=== PATIENT | female | born 1965 | race Caucasian/White ===

== ENCOUNTER 2018-01-07 08:56 | Emergency (ER) | payer BC, SELFPAY ==
[2018-01-07] VITALS (59 sets, daily range): BP systolic 114–142; BP diastolic 63–84; PULSE 55–76; RESP 11–23; TEMP 36.7–37.2; O2SAT 97–100
--- NOTE | 2018-01-07 09:13 | DI.REPORT_ITS ---
SYMPTOM/DIAGNOSIS: CHEST PAIN PA AND LATERAL CHEST: The heart is normal in size. The lungs are clear. The mediastinal structures and pleura appear intact. CONCLUSION: Normal chest.
[2018-01-07 09:26] LABS: Absolute Basophil Count 0.05 k/cumm (0.0-0.2); Absolute Eosinophil Count 0.04 k/cumm (0.0-0.7); Absolute Lymphocyte Count 1.38 k/cumm (1.2-3.4); Absolute Monocyte Count 0.38 k/cumm (0.11-0.7); Absolute Neutrophil Count 3.53 k/cumm (1.2-6.7); Basophils % 0.9; Eosinophils % 0.7; HCT 37.2 % (36.0-46.0); HGB 11.3 g/dL (12.0-15.5); Lymphocytes % 25.7; Mean Corp. HGB Concentration 30.4 g/dL (32.0-36.0); Mean Corpuscular Hemoglobin 24.1 pg (27.0-33.0); Mean Corpuscular Volume 79.3 fL (80-95); Mean Platelet Volume 12.6 fL (8.0-11.0); Monocytes % 7.1; Neutrophils % 65.6; Platelet Count 205 x1000/uL (130-400); RBC 4.69 m/cumm (4.00-5.20); RBC Distribution Width 18.8 % (11.7-14.6); White Blood Cell Count 5.38 k/cumm (4.4-10.8)
[2018-01-07 09:37] LABS: ALT 32 U/L (12-78); AST 21 U/L (15-37); Albumin 3.7 g/dL (3.4-5.0); Alkaline Phosphatase 52 U/L (46-116); BUN 11 mg/dL (7-18); Bilirubin, Total 0.2 mg/dL (0.2-1.0); CREATININE 0.63 mg/dL (0.55-1.02); Calcium 8.7 mg/dL (8.5-10.1); Chloride 102 mmol/L (98-107); Glucose 106 mg/dL (70-100); Lipase 203 U/L (73-393); Magnesium 1.9 mg/dL (1.8-2.4); Potassium 3.5 mmol/L (3.5-5.1); Sodium 137 mmol/L (136-145); Total Protein 7.6 g/dL (6.4-8.2)
[2018-01-07 09:44] LABS: Troponin I < 0.02 ng/mL (0.00-0.06)
--- NOTE | 2018-01-07 09:52 | ED.GENADUL_ITS ---
Disposition Clinical Impression: Atypical chest pain Disposition: HOME Condition: Improving Instructions: Chest Pain (ED) Additional Instructions: Drink plenty of fluids and get plenty of rest. You can consider stopping your Nexium and starting Prilosec, Prevacid or Pepcid for your chronic heartburn. Follow-up with your scheduled appointment for your stress test as directed. Return immediately to the emergency department with any worsening or new concerning symptoms. Prescriptions: Famotidine [Pepcid] 20 mg PO BID 14 Days tab Medical Decision Making - Lab Data Laboratory Tests 01/07/18 01/07/18 09:05 09:05 WBC 5.38 RBC 4.69 Hgb 11.3 L Hct 37.2 MCV 79.3 L MCH 24.1 L MCHC 30.4 L RDW 18.8 H Plt Count 205 MPV 12.6 H Immature Gran % 0.0 Neutrophils % 65.6 Lymphocytes % 25.7 Monocytes % 7.1 Eosinophils % 0.7 Basophils % 0.9 Absolute Neutrophils 3.53 Absolute Lymphocytes 1.38 Absolute Monocytes 0.38 Absolute Eosinophils 0.04 Absolute Basophils 0.05 Sodium 137 Potassium 3.5 Chloride 102 Carbon Dioxide 27.0 Anion Gap 8.0 BUN 11 Creatinine 0.63 Estimated GFR/1.73 m2 >= 60.00 Glucose 106 H Calcium 8.7 Magnesium 1.9 Total Bilirubin 0.2 AST 21 ALT 32 Alkaline Phosphatase 52 Troponin I < 0.02 Total Protein 7.6 Albumin 3.7 Lipase 203 - EKG Data -: EKG Interpreted by Ak 01/07/18 0902: 70 bpm. Sinus. T-wave inversion in lead III which is seen in previous EKG 2013. No acute ST elevation or depression. 01/07/18 1414: 60 bpm. Sinus. T-wave inversion in lead III which is seen in previous. No acute ST elevation or depression. Previous EKG [address] depression was also found to be reported in the initial EKG today but this does not appear significant and I do not see this depression. - Radiology Data Radiology results: report reviewed, image reviewed Chest x-ray: Negative - Medical Decision Making 909 -- 52-year-old female with 2 hour episode of right anterior chest pain that resolved prior to coming to ED. Admits to similar pain over the last few years which was diagnosed as possible GERD versus heartburn. She admits to chronic chest pain and fatigue associated what she thinks may be Lyme disease. States he has seen rheumatology in the past and had 2 negative Lyme titers. States he is still concerned that she may have Lyme disease. No DVT or PE risk factors. Wells score low risk and PERC rule does not apply as her age is 52 which is the only criteria that was positive with age greater than 50 otherwise all other factors negative. She has normal vital signs and no acute findings on exam. EKG on arrival no acute findings. Exercise stress test from November 2016 negative. Cardiac workup ordered as well as a dose of aspirin. 1100 -- labs and imaging reviewed and negative. ACS appears less likely as pain completely resolved, similar to previous GERD, negative troponin and no acute findings on EKG. Patient was offered admission but declines. Patient is agreeable to stay for second troponin at 130 PM. 1345 -- second troponin negative. Patient admits to return of pain. States it feels similar to her usual pain with reflux but is on the right side. Patient states she would like to go home. She was again offered admission but declines. At this time due to return of pain, will obtain an EKG, Pepcid and GI cocktail reassess. Patient states she would like to be out of here in the next 30 minutes. 1430 -- patient feels much better. States her symptoms have completely resolved. Patient is requesting to go home. Patient set up for outpatient exercise stress test. Will send him with prescription for Pepcid. She is instructed to follow-up with her primary care doctor within the next 2 days for reevaluation and return here if worse. History of Present Illness - General Chief complaint: Chest Pain Stated complaint: CHEST PAIN Time Seen by Provider: 01/07/18 09:10 Source: patient Mode of arrival: ambulatory Limitations: no limitations - History of Present Illness Initial comments: Patient is a 52-year-old female who presents to the ER with complaint of right- sided chest pain that started while driving the car this morning and is now resolved. Patient states at 630 this morning she was driving to work when she developed right-sided crushing chest pain. Symptoms resolved before coming to the emergency department. She denies any radiation of pain or any other associated symptoms of nausea, dizziness. She does admit to chronic shortness of breath for several years which she has been evaluated for by her PCP and states she had this this morning it was noted for than usual. Patient admits to similar type chest pain over the past several years associated with her GERD or heartburn. Patient states the pain is usually on the left side but the pain was similar in quality today. She states she does have a history of chronic joint pain and fatigue which she thinks is due to possibly Lyme disease which she may have contracted in 2010 but states she never received treatment for it. She states she had developed the erythema migrans rash after a tick bite. States she had 2 Lyme antibody test after that which were negative. Patient states she has seen rheumatology in the past for this and was ruled out for rheumatoid arthritis. She also states she has had a recent EGD in the last year her gastroenterology which was normal. She also admits to a stress test in 2014 which was negative and a stress test 1 year ago for similar type pain yesterday which was negative. She denies recent travel, recent surgery, leg pain or swelling. - Related Data Iron 1 tab PO DAILY 04/20/14 Multivitamin [Daily Multiple Vitamin] 1 each PO DAILY 06/04/16 Esomeprazole Magnesium [Nexium] 40 mg PO DAILY 01/07/18 Famotidine [Pepcid] 20 mg PO BID 14 Days tab 01/07/18 Allergies Allergy/AdvReac Type Severity Reaction Status Date / Time nickel AdvReac Intermediate Hives Unverified 01/07/18 09:10 pine and spruce AdvReac Intermediate Hives Uncoded 01/07/18 09:10 Review of Systems Constitutional: denies: chills, fever Eyes: denies: eye pain ENT: denies: ear pain, dental pain Respiratory: denies: cough, shortness of breath Cardiovascular: denies: chest pain, dyspnea on exertion Gastrointestinal: denies: abdominal pain, nausea, vomiting Genitourinary: denies: urgency, dysuria, frequency Musculoskeletal: denies: back pain Skin: denies: rash, lesions Neurological: denies: headache, weakness, numbness Past Medical History - Past Medical History Medical history: GERD Ovarian cysts Surgical history: herniorraphy, - Social History Smoking status: current everyday smoker Alcohol use: none Drug use: none General Exam - General Limitations: no limitations General appearance: alert, in no apparent distress - Eye Eye exam: Present: EOMI - Respiratory Respiratory exam: Present: normal lung sounds bilaterally, other (No evidence of trauma or rash). Absent: respiratory distress, wheezes, rales, rhonchi, stridor, chest wall tenderness - Cardiovascular Cardiovascular Exam: Present: regular rate, normal rhythm. Absent: bradycardia , tachycardia - GI/Abdominal GI/Abdominal exam: Present: soft, normal bowel sounds. Absent: distended, tenderness, guarding, rebound, rigid - Extremities Exam Extremities exam: Present: other (no lower extremity edema) - Neurological Exam Neurological exam: Present: alert, oriented X3 - Psychiatric Psychiatric exam: Present: normal affect - Skin Skin exam: Present: warm, dry, intact Course Vital Signs - 24 hr 01/07/18 01/07/18 09:03 09:16 Temperature 99.0 F Pulse 76 Respiratory 16 16 Rate Blood Pressure 136/84 Pulse Oximetry 100
[2018-01-07] MEDS: Aspirin 325 MG TAB PO (11:16)
[2018-01-07 13:42] LABS: Troponin I < 0.02 ng/mL (0.00-0.06)
[2018-01-07] MEDS: FAMOTIDINE 20 MG/50 ML BAG 100 MG IVPB (14:08)
== END 2018-01-07 15:14 | disposition home or self-care (01) ==
PROVIDERS: Emergency Provider Physician Assistant; PCP Internal Medicine
DX: R07.89 Other chest pain (principal)
CPT/HCPCS: 36415; 80053; 83690; 93005; 96365; 99285; 71046; 83735; 84484; 85025; 93010

== ENCOUNTER → 2018-01-09 01:09 | Outpatient (CLI) | payer BC, SELFPAY ==
--- NOTE | 2018-01-09 13:00 | ETT_ITS ---
*[facility]* *[facility]* [address] [place] [address] Stress Electrocardiography Rashel protocol Date of study: 01/09/2018 *PATIENT PRESENTATION* Height: 170.2cm (67in) Blood Pressure: Weight: 68.2kg (150lb) BSA: 1.8m^2 Ordering physician: Milagros Felix Impressions: Normal study after maximal exercise. Summary: 1. Stress ECG conclusions: Brody treadmill score: 10. This score predicts a low risk of cardiac events. Indication: R07.9. History: Patient's presenting symptoms: nonanginal chest pain. REASON FOR VISIT: PATIENT PRESENTED TO THE EMERGENCY ROOM 01/07/18 FOLLOWING 2 HOURS OF 5/10 CRUSHING RIGHT ANTERIOR CHEST PAIN. ONSET OF CHEST PAIN WHILE DRIVING CAR AND HAD RESOLVED WITHOUT INTERVENTION PRIOR TO ARRIVAL TO EMERGENCY ROOM. PATIENT REPORTS CHRONIC LEFT SIDED CHEST PAIN, FATIGUE, AND SHORTNESS OF BREATH. PAST MEDICAL HISTORY: GERD. ARTHRITIS. OVARIAN CYSTS. FAMILY HISTORY: NONE. SMOKING STATUS: 1-2 CIGARETTES A DAY. 25 YEAR SMOKING HISTORY. EXERCISE ROUTINE: NONE. Risk factors: Current tobacco use. Cholesterol: 187mg/dl. HDL: 58mg/dl. LDL: 107mg/dl. Triglycerides: 98mg/dl. ALLERGIES: NICKEL, PINE, SPRUCE. MEDICATIONS: ESOMEPRAZOLE MAGNESIUM 40MG, DAILY. FAMOTIDINE 20MG, BID. IRON 18MG, DAILY. MULTIVITAMIN, DAILY. Protocol: Rashel protocol. Baseline ECG: SINUS RHYTHM. HEART RATE 66 BPM. Stress protocol: + +---+ + !Stage !HR !BP (mmHg) ! + +---+ + !Baseline supine !66 !124/78 (93) ! + +---+ + !Baseline standing !76 !142/84 (103)! + +---+ + !Stage I; 1.7mph, 10degrees; 3 min !115!182/84 (117)! + +---+ + !Stage II; 2.5mph, 12degrees; 3 min !130!186/90 (122)! + +---+ + !Stage III; 3.4mph, 14degrees; 3 min!146!190/92 (125)! + +---+ + !Stage IV; 4.2mph, 16degrees; 3 min !160! ! + +---+ + !Peak stress !160! ! + +---+ + !Immediate post stress !130!184/82 (116)! + +---+ + !Recovery; 3 min !85 !162/84 (110)! + +---+ + !Recovery; 6 min !78 !120/68 (85) ! + +---+ + * Stress results: Maximal heart rate during stress was 160bpm (95% of maximal predicted heart rate). The maximal predicted heart rate was 169bpm. The rate-pressure product for the peak heart rate and blood pressure was 85225cn Hg/min. Stress ECG: TREADMILL PORTION OF EXERCISE STRESS TEST ENDED IN 9MIN 36SEC DUE TO PATIENT FATIGUE. EXAGGERATED BLOOD PRESSURE RESPONSE TO INITIATION OF EXERCISE. BLUNTED BLOOD PRESSURE RESPONSE DURING EXERCISE. APPROPRIATE HEART RATE RESPONSE TO EXERCISE. MAX HEART RATE 160 BPM, 94% OF TARGET. APPROXIMATE METS ACHIEVED 11.16. NO ANGINA REPORTED. RARE PVC NOTED. NO SIGNIFICANT ST SEGMENT CHANGES. ABOVE AVERAGE FUNCTIONAL CAPACITY. Brody treadmill score: 10. This score predicts a low risk of cardiac events. Study data: Ayesha Rizzo MD supervised and was readily available during the procedure. This study was interpreted by [facility]. Study status: Routine. Consent: The risks, benefits, and alternatives to the procedure were explained to the patient and informed consent was obtained. Procedure: Initial setup. A baseline ECG was recorded. Surface ECG leads and manual cuff blood pressure measurements were monitored. Heart sounds: Normal. Lung sounds: Normal. Treadmill exercise testing was performed using the Rashel protocol. Study completion: The patient tolerated the procedure well and was discharged from the lab. Discharge: The patient left the laboratory in stable condition. Birthdate: Patient birthdate: 1965. Sex: Gender: female. Study date: Study date: 01/09/2018. Study time: 01:00 PM. Signature Documentation: The Stress ECG portion of this study was interpreted by Ayesha Rizzo MD. Electronically signed by Ayesha Rizzo 01/09/2018 15:04
== END ==
PROVIDERS: PCP Internal Medicine; Visit Provider Physician Assistant
DX: R07.89 Other chest pain (principal); R06.02 Shortness of breath; F17.210 Nicotine dependence, cigarettes, uncomplicated
CPT/HCPCS: 93017

== ENCOUNTER 2018-01-15 16:30 | Outpatient (REF) | payer BC, SELFPAY ==
[2018-01-15 21:15] LABS: Absolute Basophil Count 0.06 k/cumm (0.0-0.2); Absolute Eosinophil Count 0.09 k/cumm (0.0-0.7); Absolute Lymphocyte Count 1.73 k/cumm (1.2-3.4); Absolute Monocyte Count 0.46 k/cumm (0.11-0.7); Absolute Neutrophil Count 4.23 k/cumm (1.2-6.7); Basophils % 0.9; Eosinophils % 1.4; HCT 34.9 % (36.0-46.0); HGB 10.5 g/dL (12.0-15.5); Lymphocytes % 26.3; Mean Corp. HGB Concentration 30.1 g/dL (32.0-36.0); Mean Corpuscular Hemoglobin 23.6 pg (27.0-33.0); Mean Corpuscular Volume 78.4 fL (80-95); Neutrophils % 64.4; RBC 4.45 m/cumm (4.00-5.20); RBC Distribution Width 18.4 % (11.7-14.6); White Blood Cell Count 6.57 k/cumm (4.4-10.8)
[2018-01-15 21:27] LABS: C-Reactive Protein 0.07 mg/dL (0.0-0.3); TSH (W/Ref FT4) 2.35 uIU/mL (0.358-3.74)
[2018-01-15 21:37] LABS: Anisocytosis 1+; Diff Comment RBC Morph Reviewed
[2018-01-15 21:38] LABS: Platelet Count 186 x1000/uL (130-400)
[2018-01-15 21:52] LABS: Ferritin 16 ng/mL (8-388)
[2018-01-15 22:04] LABS: Iron 18 ug/dL (50-175); Total Iron Binding Capacity 501 ug/dL (250-450); Transferrin Sat 4 % (15-50)
[2018-01-15 22:14] LABS: ESR 14 MM/HR (0-30)
[2018-01-19 13:25] LABS: Lyme Ab w Rflx to Lyme Confirm Negative
[2018-01-19 14:43] LABS: ANA Interpretation Negative (NEGAT)
== END 2018-01-15 16:31 ==
LOC: NCHCN 16:30
PROVIDERS: PCP Internal Medicine; Visit Provider Nurse Practitioner Family
DX: R07.9 Chest pain, unspecified (principal); D50.9 Iron deficiency anemia, unspecified
CPT/HCPCS: 85652; 82728; 83540; 83550; 84443; 85025; 86038; 86140; 86618

== ENCOUNTER 2018-01-22 03:57 | Outpatient (CLI) | payer BC, SELFPAY ==
--- NOTE | 2018-01-30 08:32 | HOLTER_ITS ---
HOLTER MONITOR DATE OF ANALYSIS/DICTATION January 29, 2018 DATE OF RECORDING January 22, 2018 REFERRING Edilma Broussard NP INDICATIONS Chest pain. FINDINGS 1. Baseline sinus rhythm. Heart rate spectrum 50 - 115 beats per minute, average 69 beats per minute . 2. Rare PAC, 15/2 days, one 4-beat SVT run at 142 beats per minute, no AF. 3. Rare PVC, 12/2 days, no VT. 4. No significant pauses. 5. Symptoms: Chest pain x15 minutes with sinus rhythm 80 beats per minute, acid reflux x1 hour with sinus rhythm 68 beats per minute, chest pain x10 minutes with sinus rhythm 74 beats per minute, acid reflux x30 minutes with sinus rhythm 79 beats per minute, chest pain x10 minutes with sinus rhythm 59 beats per minute. Rogelio Mosqueda M.D. EVERETT/hansel T - 01/30/2018
== END 2018-01-22 04:17 ==
PROVIDERS: PCP Internal Medicine; Visit Provider Nurse Practitioner Family
DX: R07.89 Other chest pain (principal); I49.1 Atrial premature depolarization; I49.3 Ventricular premature depolarization
CPT/HCPCS: 93225

== ENCOUNTER 2018-01-29 08:10 | Outpatient (CLI) | payer BC, SELFPAY | END 2018-01-29 08:30 | PROVIDERS: PCP Internal Medicine; Visit Provider Nurse Practitioner Family | DX: R07.89 Other chest pain (principal); I49.1 Atrial premature depolarization; I49.3 Ventricular premature depolarization | CPT/HCPCS: 93226 ==

== ENCOUNTER 2018-02-04 00:57 | Outpatient (CLI) | payer BC, SELFPAY ==
--- NOTE | 2018-02-04 16:16 | DI.MAMMO_ITS ---
SYMPTOM/DIAGNOSIS: SCREENING, Z12.31 MAMMOGRAMS: Mammograms were interpreted according to the usual protocol including computer analysis with CAD system, tomosynthesis and C view imaging. The breast tissue is heterogeneously radiodense which lowers the sensitivity of the study. There is no dominant mass. There are no suspicious calcifications and there has been no significant interval change when compared with prior images. IMPRESSION: No evidence of malignancy, category 1. Yearly screening mammography is recommended. Breast density, category C. SA ASSESSMENT OF FINDINGS: Negative. Category 1. Patient will receive a letter notifying them of these results. Bi-RADS category C. The breasts are heterogeneously dense, which may obscure small masses.
== END 2018-02-04 01:17 ==
PROVIDERS: PCP Internal Medicine; Visit Provider Nurse Practitioner Family
DX: Z12.31 Encounter for screening mammogram for malignant neoplasm of breast (principal)
CPT/HCPCS: 77063; 77067

== ENCOUNTER 2018-02-13 08:49 | Outpatient (CLI) | payer BC, SELFPAY ==
--- NOTE | 2018-02-13 09:07 | MERGE_ITS ---
*[facility]* * Cardiology* [address] [place] [address] Date of study: 02/13/2018 Transthoracic Echocardiography M-mode, complete 2D, complete spectral Doppler, and color Doppler *STUDY CONCLUSIONS* Summary: 1. Left ventricle: The cavity size was normal. Wall thickness was normal. Systolic function was normal. The estimated ejection fraction was 55-60%. Wall motion was normal; there were no regional wall motion abnormalities. 2. Right ventricle: The cavity size was normal. Systolic function was normal. 3. Inferior vena cava: The vessel was normal in size. The respirophasic diameter changes were in the normal range (greater than or equal to 50%), consistent with normal central venous pressure. *PATIENT PRESENTATION* Height: 170.2cm ((67in) ) S/D Pressure: 130 / 78 Weight: 68kg ((149.7lb) ) BSA: 1.8m^2 Test start time: 09:07 AM. Test stop time: 10:00 AM. ORDERING Rogelio Mosqueda REFERRING Rogelio Mosqueda PERFORMING Unknown PERFORMING [facility] PICKLE PROCESSOR Emily Avalos *PROCEDURE DATA* Procedure information: This study was interpreted by [facility]. Pertinent images and digital data are archived for permanent storage and are available for subsequent review. No prior study was available for comparison. Study status: Routine. Transthoracic echocardiography. M-mode, complete 2D, complete spectral Doppler, and color Doppler. A Transthoracic Echocardiogram was performed. Scanning was performed from the parasternal, apical, subcostal, and suprasternal notch acoustic windows. Images were obtained using an [employer] SC 2000 cardiac ultrasound machine. Image quality was adequate. Study completion: The patient tolerated the procedure well. There were no complications. History: PMH: Shortness of breath *CARDIAC ANATOMY* Left ventricle: The cavity size was normal. Wall thickness was normal. Systolic function was normal. The estimated ejection fraction was 55-60%. Wall motion was normal; there were no regional wall motion abnormalities. Aortic valve: Trileaflet; normal thickness leaflets. Mobility was not restricted. Doppler: Transvalvular velocity was within the normal range. There was no stenosis. There was no significant regurgitation. VTI ratio of LVOT to aortic valve: 0.86. Valve area (VTI): 2.7cm^2. Indexed valve area (VTI): 1.5cm^2/m^2. Peak velocity ratio of LVOT to aortic valve: 0.88. Valve area (Vmax): 2.8cm^2. Indexed valve area (Vmax): 1.5cm^2/m^2. Mean velocity ratio of LVOT to aortic valve: 0.73. Valve area (Vmean): 2.3cm^2. Indexed valve area (Vmean): 1.3cm^2/m^2. Mean gradient (S): 2.5mm Hg. Peak gradient (S): 4.6mm Hg. Aorta: Aortic root: The aortic root was normal in size. Ascending aorta: The ascending aorta was normal in size. Mitral valve: Structurally normal valve. Mobility was not restricted. Doppler: Transvalvular velocity was within the normal range. There was no evidence for stenosis. There was no significant regurgitation. Valve area by pressure half-time: 5cm^2. Indexed valve area by pressure half-time: 2.8cm^2/m^2. Peak gradient (D): 2.2mm Hg. Left atrium: The atrium was normal in size. Right ventricle: The cavity size was normal. Systolic function was normal. Pulmonic valve: Poorly visualized. Doppler: Transvalvular velocity was within the normal range. There was no evidence for stenosis. There was no significant regurgitation. Tricuspid valve: Structurally normal valve. Doppler: Transvalvular velocity was within the normal range. There was no evidence for stenosis. There was trivial regurgitation. Pulmonary artery: Poorly visualized. Pulmonary systolic pressure was in the range of 20mm Hg to 25mm Hg. Right atrium: The atrium was normal in size. Pericardium: There was no pericardial effusion. Systemic veins: Inferior vena cava: The vessel was normal in size. The respirophasic diameter changes were in the normal range (greater than or equal to 50%), consistent with normal central venous pressure. Measurements Left ventricle Value Reference LV ID, ED, PLAX 4.9 cm 3.5 - 6.0 LV ID, ES, PLAX 3.6 cm 2.1 - 4.0 LV PW thickness, ED, PLAX 0.8 cm LV end-diastolic volume, 1-p A2C 99 ml LV ejection fraction, 1-p A2C 54 % LV end-diastolic volume, 1-p A4C 97 ml LV ejection fraction, 1-p A4C 51 % LV e', lateral 0.126 m/sec LV E/e', lateral 6 LV e', medial 0.114 m/sec LV E/e', medial 7 LV e', average 0.12 m/sec LV E/e', average 6 Ventricular septum Value Reference IVS thickness, ED, PLAX 0.7 cm LVOT Value Reference LVOT ID, A-P 2.0 cm LVOT area 3.2 cm^2 LVOT peak velocity, S 0.94 m/sec LVOT mean velocity, S 0.55 m/sec LVOT VTI, S 18.9 cm LVOT peak gradient, S 3.5 mm Hg LVOT mean gradient, S 1.5 mm Hg Stroke volume (SV), LVOT DP 59 ml Stroke index (SV/bsa), LVOT DP 33 ml/m^2 Aortic valve Value Reference Aortic valve peak velocity, S 1.1 m/sec Aortic valve mean velocity, S 0.75 m/sec Aortic valve VTI, S 22.0 cm Aortic mean gradient, S 2.5 mm Hg Aortic peak gradient, S 4.6 mm Hg VTI ratio, LVOT/AV 0.86 Aortic valve area, VTI 2.7 cm^2 Velocity ratio, peak, LVOT/AV 0.88 Aortic valve area, peak velocity 2.8 cm^2 Velocity ratio, mean, LVOT/AV 0.73 Aortic valve area, mean velocity 2.3 cm^2 Aortic valve area/bsa, mean velocity 1.3 cm^2/m^2 Aorta Value Reference Aortic root ID, ED 3.3 cm Ascending aorta ID, A-P, S 3.3 cm Left atrium Value Reference LA ID, A-P, ES 3.3 cm LA ID/bsa, A-P 1.8 cm/m^2 <=2.2 LA area, ES, A4C 12.9 cm^2 8.8 - 23.4 LA area, ES, A2C 12 cm^2 LA volume/bsa, S 18 ml/m^2 LA volume, ES, 2-p 31 ml LA volume/bsa, ES, 2-p 17 ml/m^2 LA/aortic root ratio 1.01 Mitral valve Value Reference Mitral E-wave peak velocity 0.74 m/sec Mitral A-wave peak velocity 0.64 m/sec Mitral deceleration time 151 ms 150 - 230 Mitral pressure half-time 44 ms Mitral peak gradient, D 2.2 mm Hg Mitral E/A ratio, peak 1.15 Mitral valve area, PHT, DP 5 cm^2 Tricuspid valve Value Reference Tricuspid regurg peak velocity 2 m/sec Tricuspid peak RV-RA gradient 16.7 mm Hg Right atrium Value Reference RA area, ES, A4C (L) 8 cm^2 8.3 - 19.5 Legend: (L) and (H) daniel values outside specified reference range. I have personally reviewed the images and have reviewed and edited the reported findings. Electronically signed by Ayesha Rizzo 02/14/2018 15:39
== END 2018-02-13 09:09 ==
PROVIDERS: PCP Internal Medicine; Visit Provider Internal Medicine Cardiovascular Disease
DX: R06.02 Shortness of breath (principal)
CPT/HCPCS: 93306

== ENCOUNTER 2018-02-25 02:15 | Outpatient (CLI) | payer BC, SELFPAY ==
[2018-02-25] MEDS: Inhaler, Assist Device 1 EACH MC (13:17)
[2018-02-25] MEDS: Albuterol HFA 18 GM 200 PUFF INH IH (13:17)
--- NOTE | 2018-02-27 09:50 | PFT_ITS ---
PULMONARY FUNCTION TEST REPORT DATE OF SERVICE: February 25, 2018 REQUESTING PROVIDER: Edilma Broussard APRN Spirometry shows no evidence of obstructive airways disease. No bronchodilator response. Lung volumes show no evidence of restriction. Diffusion capacity normal. Airways resistance normal. IMPRESSION: Normal pulmonary function study. Clinical correlation recommended. MAURISIO/luis felipe D/ SEE SCANNED DOCUMENT IN THE EMR FOR DATA AND GRAPHS
== END 2018-02-25 02:35 ==
PROVIDERS: PCP Internal Medicine; Visit Provider Nurse Practitioner Family
DX: R07.9 Chest pain, unspecified (principal); J45.990 Exercise induced bronchospasm
CPT/HCPCS: 94060; 94150; 94726; 94729

== ENCOUNTER 2018-03-20 09:48 | Outpatient (REF) | payer BC, SELFPAY ==
[2018-03-20 13:53] LABS: Iron 48 ug/dL (50-175); Total Iron Binding Capacity 404 ug/dL (250-450); Transferrin Sat 12 % (15-50)
[2018-03-20 13:55] LABS: HGB 13.7 g/dL (12.0-15.5); Mean Corp. HGB Concentration 32.6 g/dL (32.0-36.0); Mean Corpuscular Hemoglobin 28.3 pg (27.0-33.0); Mean Corpuscular Volume 86.8 fL (80-95); RBC 4.84 m/cumm (4.00-5.20); RBC Distribution Width 18.4 % (11.7-14.6); White Blood Cell Count 3.89 k/cumm (4.4-10.8)
[2018-03-20 14:07] LABS: Cholesterol 190 mg/dL (50-200); Ferritin 35 ng/mL (8-388); HDL Cholesterol 68 mg/dL (40-60); LDL CHOLESTEROL 110 mg/dL (<100); Triglyceride 64 mg/dL (30-150)
[2018-03-20 14:08] LABS: Platelet Count 160 x1000/uL (130-400)
== END 2018-03-20 10:08 ==
LOC: NCHCN 09:48
PROVIDERS: PCP Internal Medicine; Visit Provider Nurse Practitioner Family
DX: D50.9 Iron deficiency anemia, unspecified (principal); E55.9 Vitamin D deficiency, unspecified; I47.1 Supraventricular tachycardia; R53.83 Other fatigue
CPT/HCPCS: 80061; 83721; 85027; 82728; 83540; 83550

== ENCOUNTER 2018-04-27 10:01 | Outpatient (CLI) | payer BC, SELFPAY | END 2018-04-27 10:21 | PROVIDERS: PCP Internal Medicine; Visit Provider Internal Medicine Interventional Cardiology | DX: R07.9 Chest pain, unspecified (principal); I47.1 Supraventricular tachycardia; R06.02 Shortness of breath | CPT/HCPCS: 93005; 93010 ==

== ENCOUNTER 2018-05-25 09:26 | Emergency (ER) | payer BC, SELFPAY ==
[2018-05-25] VITALS (31 sets, daily range): BP systolic 118–154; BP diastolic 80–105; PULSE 56–78; RESP 8–24; TEMP 36.4–37.1; O2SAT 98–100
--- NOTE | 2018-05-25 09:38 | W.ED.GENAD ---
Discharge Plan Disposition Patient Disposition: [facility] Discharge Details Chief Complaint: Chest Pain Clinical Impression: Non-ST elevation [place] (NSTEMI) Reason For Visit: CHEST PAIN Primary Care Provider: Cam Humphries ED Provider: Roselia Arriaza Home Meds and New Rx's Prescriptions: No Action ferrous sulfate [FeroSul] 325 mg (65 mg iron) tablet 325 mg PO BID RF: 0 medroxyprogesterone 10 mg tablet 10 mg PO DAILY PRN (Reason: menorrhagia) Qty: 10 RF: 0 multivitamin [Daily Multiple] tablet 1 tab PO DAILY RF: 0 esomeprazole magnesium [Nexium] 40 MG capsule,delayed release(DR/EC) 40 mg PO DAILY RF: 0 naproxen sodium [Aleve] 220 mg Tablet 1 tab PO PRN PRNRF: 0 Discharge Data Discharge Date/Time-TO BE ENTERED AT DEPARTURE: 05/25/18 12:23 Medical Decision Making Toshia Betancourt is a 52-year-old woman with history of GERD, arthritis presenting to the emergency department with crushing chest pain that began while walking, resolved at rest over an hour. On exam patient is well and nontoxic appearing. Benign cardiopulmonary exam. No posterior calf tenderness or edema. Concern for possible ACS versus PE versus GERD, other. Exam/history is not consistent with sepsis, acute aortic pathology. Plan for EKG, chest x-ray, screening labs, aspirin, telemetry. Will monitor and reassess. Chest x-ray okay. Troponin resulted at 1.46. Patient reporting no chest pain. EKG repeated. [facility] called emergently at 1055, EKG faxed. Patient given heparin/Plavix for NSTEMI. Exam/hx not consistent with coagulopathy. Rpt EKG shows dynamic T wave changes without STEMI. [facility] called back at approximately 1130, spoke with cardiology on-call who recommended heparin/ Plavix. Pending acceptance. [facility] called, requesting possible transfer. Patient reports no chest pain, no other symptoms at this time. [facility] called back, patient accepted, Dr. Parikh is accepting physician. Plan for transfer to [facility]. Patient reports very mild return of chest pain, less than 1 out of 10. Will give sublingual nitro. Pt reports resolution of pain. Pt left ED with transfer team without further incident. Clinical Impression: NSTEMI Disposition: Transfer to [facility] Medical Records Medical records reviewed: Yes I reviewed the patient's medical records. Imaging Data Radiologic Study: Attestation: I personally reviewed and interpreted this imaging study as follows: Radiologist's impression: PA AND LATERAL CHEST: Comparison 01/07/18. The heart is normal in size. The lungs are clear. The mediastinal structures and pleura appear intact. CONCLUSION: Normal chest. Lab Data Lab results reviewed: Yes I reviewed the patient's lab results. Laboratory Tests Range/Units 05/25/18 05/25/18 05/25/18 09:48 09:48 09:48 WBC (4.4-10.8) k/cumm 7.52 RBC (4.00-5.20) m/cumm 4.33 Hgb (12.0-15.5) g/dL 13.3 Hct (36.0-46.0) % 39.6 MCV (80-95) fL 91.5 MCH (27.0-33.0) pg 30.7 MCHC (32.0-36.0) g/dL 33.6 RDW (11.7-14.6) % 14.3 Plt Count (130-400) x1000/uL 173 MPV (8.0-11.0) fL 12.6 H Immature Gran % 0.1 Neutrophils % 78.4 Lymphocytes % 13.7 Monocytes % 6.8 Eosinophils % 0.5 Basophils % 0.5 Absolute Neutrophils (1.2-6.7) k/cumm 5.89 Absolute Lymphocytes (1.2-3.4) k/cumm 1.03 L Absolute Monocytes (0.11-0.7) k/cumm 0.51 Absolute Eosinophils (0.0-0.7) k/cumm 0.04 Absolute Basophils (0.0-0.2) k/cumm 0.04 D-Dimer (<500) ng/mlFEU 343 Sodium (136-145) mmol/L 142 Potassium (3.5-5.1) mmol/L 3.9 Chloride (98-107) mmol/L 104 Carbon Dioxide (21.0-32.0) mmol/L 29.6 Anion Gap (3-11) mmol/L 8.4 BUN (7-18) mg/dL 14 Creatinine (0.55-1.02) mg/dL 0.69 Estimated GFR/1.73 m2 (mL/min/1.73m2) >= 60.00 Glucose (70-100) mg/dL 108 H Calcium (8.5-10.1) mg/dL 8.8 Total Bilirubin (0.2-1.0) mg/dL 0.2 AST (15-37) U/L 15 ALT (12-78) U/L 22 Alkaline Phosphatase (46-116) U/L 51 Troponin I (0.00-0.06) ng/mL 1.46 H Total Protein (6.4-8.2) g/dL 6.9 Albumin (3.4-5.0) g/dL 3.4 ECG Data Attestation: I personally reviewed and interpreted this ECG (s) as follows: Interpretation: EKG #1 shows sinus bradycardia at 59 with normal axis, slight biphasic T wave V3 not present on prior, no STEMI EKG #2 shows sinus bradycardia at 58 with normal axis, T wave inversion V2 through V5, no STEMI HPI General Mode of arrival: ambulatory. Date/Time Provider Initiated Documentation: 05/25/18 09:38. Limitations to Documentation: no limitations. Information obtained by: patient, RN notes reviewed and old records reviewed. HPI Narrative: Toshia Betancourt is a 52 y/o woman with with history of heartburn, arthritis presenting to the emergency department chest pain. Patient reports that she was walking across the parking lot from a car to her office building this morning for work when she developed crushing retrosternal chest pain that did not radiate. Patient reports that she sat down after entering her office building, and it took over an hour while at rest for her chest pain to resolve. She reports that she is not currently having any discomfort. She reports feeling generally weak and lightheaded as well she had the pain. She denies any other pain, shortness of breath, nausea/vomiting/diarrhea, localized weakness, numbness/tingling. No recent illnesses. No recent travel. Patient reports that she has had several episodes of similar symptoms. She had a stress test for similar chest pain in October, which was negative. She had an echocardiogram in the past few months which was negative. she has had pH manometry performed by GI which was negative. She was seen here in February for similar chest pain and had a negative workup at that time. She saw cardiology in March for this, who recommended no further cardiac intervention/testing at that time. Related Data Home Medications Medication Instructions Recorded Confirmed esomeprazole magnesium [Nexium] 40 mg PO DAILY 01/07/18 05/25/18 ferrous sulfate 325 mg (65 mg 325 mg PO BID tab 01/29/18 05/25/18 iron) tablet medroxyprogesterone 10 mg tablet 10 mg PO DAILY PRN #10 tab 01/29/18 05/25/18 multivitamin tablet 1 tab PO DAILY tab 04/27/18 05/25/18 naproxen sodium [Aleve] 1 tab PO PRN PRN 05/25/18 05/25/18 Previous Rx's Medication Instructions Recorded medroxyprogesterone 10 mg tablet 10 mg PO DAILY PRN #10 tab 01/29/18 Allergies Allergy/AdvReac Type Severity Reaction Status Date / Time nickel AdvReac Intermediate Hives Unverified 05/25/18 09:42 pine and spruce AdvReac Intermediate Hives Uncoded 05/25/18 09:42 Review of Systems Review of Systems Constitutional: denies fevers Eyes: denies eye pain ENT: denies facial pain, dental pain, sore throat Cardiovascular: denies edema, reports chest pain Respiratory: denies SOB, cough GI: denies abdominal pain, vomiting, diarrhea : denies flank pain MSK: denies back pain, neck pain, arthralgias, myalgias Skin: denies rash Neuro: denies headaches, reports lightheadedness, generalized weakness [facility] Medical History Chest pain due to gastrointestinal reflux disease (Acute) Arthropathia Dyspepsia Exercise induced bronchospasm Fatigue Jaw pain Leg cramps, sleep related Malaise and fatigue Subclinical hypothyroidism TMJ (temporomandibular joint syndrome) Social History household members: spouse lives independently: Yes number of children: 3 current occupational status: employed 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, (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) Smoking/Tobacco Use Status: Current every day second hand exposure: Yes alcohol intake: never substance use type: does not use seatbelt use: always History History 3 Para Hx # Term Pregnancies 3 Multiple births Hx # Pregnancies Ectopic pregnancies AB induced Hx Number of Living Children AB spontaneous Exam Narrative Exam Narrative: Constitutional: well and [id number], pleasant, conversing normally HENT: head atraumatic, normocephalic normal inspection, mucous membranes moist Eyes: conjunctiva normal, sclera normal, pupils 3mm b/l Neck: no stridor, normal ROM, trachea midline Chest: normal inspection Resp: normal work of breathing, LCTAB Cardio: normal rate, normal rhythm, no murmur appreciated GI: abdomen soft, non-tender, non-distended Back: normal inspection, no rash Skin: warm, dry, normal color, no rash Neuro: alert, not altered, grossly non-focal, normal tone Ext: no edema, no posterior calf tenderness to palpate Psych: normal mood, normal affect, normal behavior Critical Care Time Attestation: I have spent 45 minute of critical care time with this critically ill patient including frequent bedside reassessments and discussions with consultants.
[2018-05-25] MEDS: Normal Saline Flush 10 ML SYR IVP (09:48)
--- NOTE | 2018-05-25 10:08 | ED.GENADUL_ITS ---
Discharge Plan Disposition Patient Disposition: [facility] Discharge Details Chief Complaint: Chest Pain Clinical Impression: Non-ST elevation [place] (NSTEMI) Reason For Visit: CHEST PAIN Primary Care Provider: Cam Humphries ED Provider: Roselia Arriaza Home Meds and New Rx's Prescriptions: No Action ferrous sulfate [FeroSul] 325 mg (65 mg iron) tablet 325 mg PO BID RF: 0 medroxyprogesterone 10 mg tablet 10 mg PO DAILY PRN (Reason: menorrhagia) Qty: 10 RF: 0 multivitamin [Daily Multiple] tablet 1 tab PO DAILY RF: 0 esomeprazole magnesium [Nexium] 40 MG capsule,delayed release(DR/EC) 40 mg PO DAILY RF: 0 naproxen sodium [Aleve] 220 mg Tablet 1 tab PO PRN PRNRF: 0 Discharge Data Discharge Date/Time-TO BE ENTERED AT DEPARTURE: 05/25/18 12:23 Medical Decision Making Toshia Betancourt is a 52-year-old woman with history of GERD, arthritis presenting to the emergency department with crushing chest pain that began while walking, resolved at rest over an hour. On exam patient is well and nontoxic appearing. Benign cardiopulmonary exam. No posterior calf tenderness or edema. Concern for possible ACS versus PE versus GERD, other. Exam/history is not consistent with sepsis, acute aortic pathology. Plan for EKG, chest x-ray, screening labs, aspirin, telemetry. Will monitor and reassess. Chest x-ray okay. Troponin resulted at 1.46. Patient reporting no chest pain. EKG repeated. [facility] called emergently at 1055, EKG faxed. Patient given heparin/Plavix for NSTEMI. Exam/hx not consistent with coagulopathy. Rpt EKG shows dynamic T wave changes without STEMI. [facility] called back at approximately 1130, spoke with cardiology on-call who recommended heparin/ Plavix. Pending acceptance. [facility] called, requesting possible transfer. Patient reports no chest pain, no other symptoms at this time. [facility] [place] back, patient accepted, Dr. Parikh is accepting physician. Plan for transfer to [facility]. Patient reports very mild return of chest pain, less than 1 out of 10. Will give sublingual nitro. Pt reports resolution of pain. Pt left ED with transfer team without further incident. Clinical Impression: NSTEMI Disposition: Transfer to [facility] Medical Records Medical records reviewed: Yes I reviewed the patient's medical records. Imaging Data Radiologic Study: Attestation: I personally reviewed and interpreted this imaging study as follows: Radiologist's impression: PA AND LATERAL CHEST: Comparison 01/07/18. The heart is normal in size. The lungs are clear. The mediastinal structures and pleura appear intact. CONCLUSION: Normal chest. Lab Data Lab results reviewed: Yes I reviewed the patient's lab results. Laboratory Tests Range/Units 05/25/18 05/25/18 05/25/18 09:48 09:48 09:48 WBC (4.4-10.8) k/cumm 7.52 RBC (4.00-5.20) m/cumm 4.33 Hgb (12.0-15.5) g/dL 13.3 Hct (36.0-46.0) % 39.6 MCV (80-95) fL 91.5 MCH (27.0-33.0) pg 30.7 MCHC (32.0-36.0) g/dL 33.6 RDW (11.7-14.6) % 14.3 Plt Count (130-400) x1000/uL 173 MPV (8.0-11.0) fL 12.6 H Immature Gran % 0.1 Neutrophils % 78.4 Lymphocytes % 13.7 Monocytes % 6.8 Eosinophils % 0.5 Basophils % 0.5 Absolute Neutrophils (1.2-6.7) k/cumm 5.89 Absolute Lymphocytes (1.2-3.4) k/cumm 1.03 L Absolute Monocytes (0.11-0.7) k/cumm 0.51 Absolute Eosinophils (0.0-0.7) k/cumm 0.04 Absolute Basophils (0.0-0.2) k/cumm 0.04 D-Dimer (<500) ng/mlFEU 343 Sodium (136-145) mmol/L 142 Potassium (3.5-5.1) mmol/L 3.9 Chloride (98-107) mmol/L 104 Carbon Dioxide (21.0-32.0) mmol/L 29.6 Anion Gap (3-11) mmol/L 8.4 BUN (7-18) mg/dL 14 Creatinine (0.55-1.02) mg/dL 0.69 Estimated GFR/1.73 m2 (mL/min/1.73m2) >= 60.00 Glucose (70-100) mg/dL 108 H Calcium (8.5-10.1) mg/dL 8.8 Total Bilirubin (0.2-1.0) mg/dL 0.2 AST (15-37) U/L 15 ALT (12-78) U/L 22 Alkaline Phosphatase (46-116) U/L 51 Troponin I (0.00-0.06) ng/mL 1.46 H Total Protein (6.4-8.2) g/dL 6.9 Albumin (3.4-5.0) g/dL 3.4 ECG Data Attestation: I personally reviewed and interpreted this ECG (s) as follows: Interpretation: EKG #1 shows sinus bradycardia at 59 with normal axis, slight biphasic T wave V3 not present on prior, no STEMI EKG #2 shows sinus bradycardia at 58 with normal axis, T wave inversion V2 through V5, no STEMI HPI General Mode of arrival: ambulatory . Date/Time Provider Initiated Documentation: 05/25/18 09:38 . Limitations to Documentation: no limitations . Information obtained by: patient, RN notes reviewed and old records reviewed . HPI Narrative: Toshia Betanocurt is a 52 y/o woman with with history of heartburn, arthritis presenting to the emergency department chest pain. Patient reports that she was walking across the parking lot from a car to her office building this morning for work when she developed crushing retrosternal chest pain that did not radiate. Patient reports that she sat down after entering her office building, and it took over an hour while at rest for her chest pain to resolve. She reports that she is not currently having any discomfort. She reports feeling generally weak and lightheaded as well she had the pain. She denies any other pain, shortness of breath, nausea/vomiting/diarrhea, localized weakness, numbness/tingling. No recent illnesses. No recent travel. Patient reports that she has had several episodes of similar symptoms. She had a stress test for similar chest pain in October, which was negative. She had an echocardiogram in the past few months which was negative. she has had pH manometry performed by GI which was negative. She was seen here in February for similar chest pain and had a negative workup at that time. She saw cardiology in March for this, who recommended no further cardiac intervention/testing at that time. Related Data Home Medications Medication Instructions Recorded Confirmed esomeprazole magnesium [Nexium] 40 mg PO DAILY 01/07/18 05/25/18 ferrous sulfate 325 mg (65 mg 325 mg PO BID tab 01/29/18 05/25/18 iron) tablet medroxyprogesterone 10 mg tablet 10 mg PO DAILY PRN #10 tab 01/29/18 05/25/18 multivitamin tablet 1 tab PO DAILY tab 04/27/18 05/25/18 naproxen sodium [Aleve] 1 tab PO PRN PRN 05/25/18 05/25/18 Previous Rx's Medication Instructions Recorded medroxyprogesterone 10 mg tablet 10 mg PO DAILY PRN #10 tab 01/29/18 Allergies Allergy/AdvReac Type Severity Reaction Status Date / Time nickel AdvReac Intermediate Hives Unverified 05/25/18 09:42 pine and spruce AdvReac Intermediate Hives Uncoded 05/25/18 09:42 Review of Systems Review of Systems Constitutional: denies fevers Eyes: denies eye pain ENT: denies facial pain, dental pain, sore throat Cardiovascular: denies edema, reports chest pain Respiratory: denies SOB, cough GI: denies abdominal pain, vomiting, diarrhea : denies flank pain MSK: denies back pain, neck pain, arthralgias, myalgias Skin: denies rash Neuro: denies headaches, reports lightheadedness, generalized weakness [facility] Medical History Chest pain due to gastrointestinal reflux disease (Acute) Arthropathia Dyspepsia Exercise induced bronchospasm Fatigue Jaw pain Leg cramps, sleep related Malaise and fatigue Subclinical hypothyroidism TMJ (temporomandibular joint syndrome) Social History household members: spouse lives independently: Yes number of children: 3 current occupational status: employed 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, (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) Smoking/Tobacco Use Status: Current every day second hand exposure: Yes alcohol intake: never substance use type: does not use seatbelt use: always History History 3 Para Hx # Term Pregnancies 3 Multiple births Hx # Pregnancies Ectopic pregnancies AB induced Hx Number of Living Children AB spontaneous Exam Narrative Exam Narrative: Constitutional: well and [id number], pleasant, conversing normally HENT: head atraumatic, normocephalic normal inspection, mucous membranes moist Eyes: conjunctiva normal, sclera normal, pupils 3mm b/l Neck: no stridor, normal ROM, trachea midline Chest: normal inspection Resp: normal work of breathing, LCTAB Cardio: normal rate, normal rhythm, no murmur appreciated GI: abdomen soft, non-tender, non-distended Back: normal inspection, no rash Skin: warm, dry, normal color, no rash Neuro: alert, not altered, grossly non-focal, normal tone Ext: no edema, no posterior calf tenderness to palpate Psych: normal mood, normal affect, normal behavior Critical Care Time Attestation: I have spent 45 minute of critical care time with this critically ill patient including frequent bedside reassessments and discussions with consultants.
[2018-05-25 10:29] LABS: Abs Immature Grans 0.01 k/cumm (0.0-0.09); Absolute Basophil Count 0.04 k/cumm (0.0-0.2); Absolute Eosinophil Count 0.04 k/cumm (0.0-0.7); Absolute Lymphocyte Count 1.03 k/cumm (1.2-3.4); Absolute Monocyte Count 0.51 k/cumm (0.11-0.7); Absolute Neutrophil Count 5.89 k/cumm (1.2-6.7); Basophils % 0.5; Eosinophils % 0.5; HCT 39.6 % (36.0-46.0); HGB 13.3 g/dL (12.0-15.5); Immature Grans % 0.1; Lymphocytes % 13.7; Mean Corp. HGB Concentration 33.6 g/dL (32.0-36.0); Mean Corpuscular Hemoglobin 30.7 pg (27.0-33.0); Mean Corpuscular Volume 91.5 fL (80-95); Mean Platelet Volume 12.6 fL (8.0-11.0); Monocytes % 6.8; Neutrophils % 78.4; Platelet Count 173 x1000/uL (130-400); RBC 4.33 m/cumm (4.00-5.20); RBC Distribution Width 14.3 % (11.7-14.6); White Blood Cell Count 7.52 k/cumm (4.4-10.8)
[2018-05-25] MEDS: Aspirin 81 MG CHEW 324 MG CH (10:36)
--- NOTE | 2018-05-25 10:42 | DI.RAD_ITS ---
SYMPTOMS/DIAGNOSIS: CHEST PAIN PA AND LATERAL CHEST: Comparison 01/07/18. The heart is normal in size. The lungs are clear. The mediastinal structures and pleura appear intact. CONCLUSION: Normal chest.
[2018-05-25 10:48] LABS: ALT 22 U/L (12-78); AST 15 U/L (15-37); Albumin 3.4 g/dL (3.4-5.0); Alkaline Phosphatase 51 U/L (46-116); Anion Gap 8.4 mmol/L (3-11); BUN 14 mg/dL (7-18); Bilirubin, Total 0.2 mg/dL (0.2-1.0); CO2 29.6 mmol/L (21.0-32.0); CREATININE 0.69 mg/dL (0.55-1.02); Calcium 8.8 mg/dL (8.5-10.1); Chloride 104 mmol/L (98-107); Glucose 108 mg/dL (70-100); Potassium 3.9 mmol/L (3.5-5.1); Sodium 142 mmol/L (136-145); Total Protein 6.9 g/dL (6.4-8.2)
[2018-05-25 10:49] LABS: Troponin I 1.46 ng/mL (0.00-0.06)
[2018-05-25] MEDS: Clopidogrel 300 MG TAB PO (10:59)
[2018-05-25 11:07] LABS: D-Dimer 343 ng/mlFEU (<500)
== END 2018-05-25 12:23 | disposition short-term general hospital (02) ==
PROVIDERS: Emergency Provider Student in an Organized Health Care Education/Training Program; PCP Internal Medicine
DX: I21.4 Non-ST elevation (NSTEMI) myocardial infarction (principal)
CPT/HCPCS: 36415; 80053; 93005; 96365; 96376; 99285; 71046; 84484; 85025; 85379; 93010

== ENCOUNTER 2018-06-08 11:42 | Outpatient (RCR) | payer BC, SELFPAY | END 2018-06-18 23:59 | disposition home or self-care (01) | LOC: CR 11:42 | PROVIDERS: PCP Internal Medicine; Visit Provider Family Medicine | DX: Z51.89 Encounter for other specified aftercare (principal) ==

== ENCOUNTER 2018-07-15 09:00 | Outpatient (RCR) | payer BC, SELFPAY | END 2018-07-16 23:59 | disposition home or self-care (01) | LOC: CR 09:00 | PROVIDERS: PCP Internal Medicine; Visit Provider Family Medicine | DX: I25.2 Old myocardial infarction (principal) | CPT/HCPCS: S9472 ==

== ENCOUNTER 2018-08-12 08:00 | Outpatient (RCR) | payer BC, SELFPAY | END 2018-08-16 23:59 | disposition home or self-care (01) | LOC: CR 08:00 | PROVIDERS: PCP Internal Medicine; Visit Provider Family Medicine | DX: I25.2 Old myocardial infarction (principal) | CPT/HCPCS: S9472 ==

== ENCOUNTER 2018-08-21 11:18 | Outpatient (RCR) | payer BC, SELFPAY | END 2018-09-15 23:59 | disposition home or self-care (01) | LOC: CR 11:18 | PROVIDERS: PCP Internal Medicine; Visit Provider Family Medicine | DX: I25.2 Old myocardial infarction (principal); Z51.89 Encounter for other specified aftercare | CPT/HCPCS: S9472 ==

== ENCOUNTER 2018-08-26 06:23 | Inpatient (IN) | payer BC, SELFPAY ==
[2018-08-26] VITALS (36 sets, daily range): BP systolic 108–132; BP diastolic 64–86; PULSE 50–110; RESP 10–20; TEMP 36.5–37.4; O2SAT 96–100
[2018-08-26 06:51] LABS: Absolute Basophil Count 0.05 k/cumm (0.0-0.2); Absolute Eosinophil Count 0.12 k/cumm (0.0-0.7); Absolute Lymphocyte Count 1.23 k/cumm (1.2-3.4); Absolute Monocyte Count 0.38 k/cumm (0.11-0.7); Eosinophils % 2.5; HCT 42.1 % (36.0-46.0); Lymphocytes % 25.2; Mean Corp. HGB Concentration 33.3 g/dL (32.0-36.0); Mean Corpuscular Hemoglobin 30.8 pg (27.0-33.0); Mean Corpuscular Volume 92.5 fL (80-95); Mean Platelet Volume 12.9 fL (8.0-11.0); Monocytes % 7.8; Neutrophils % 63.5; Platelet Count 180 x1000/uL (130-400); RBC 4.55 m/cumm (4.00-5.20); RBC Distribution Width 12.6 % (11.7-14.6); White Blood Cell Count 4.88 k/cumm (4.4-10.8)
--- NOTE | 2018-08-26 07:09 | W.ED.GENAD ---
Discharge Plan Disposition Patient Disposition: [facility] INPATIENT Discharge Details Chief Complaint: Chest Pain Clinical Impression: Chest pain Primary Care Provider: Cam Humphries ED Provider: Richard Arriaza Home Meds and New Rx's Prescriptions: No Action ferrous sulfate [FeroSul] 325 mg (65 mg iron) tablet 325 mg PO BID RF: 0 medroxyprogesterone 10 mg tablet 10 mg PO DAILY PRN (Reason: menorrhagia) Qty: 10 RF: 0 multivitamin [Daily Multiple] tablet 1 tab PO DAILY RF: 0 esomeprazole magnesium [Nexium] 40 MG capsule,delayed release(DR/EC) 40 mg PO DAILY RF: 0 naproxen sodium [Aleve] 220 mg Tablet 1 tab PO PRN PRNRF: 0 amlodipine 2.5 mg Tablet PO DAILY RF: 0 Medical Decision Making 7:15 --52-year-old female with history of an STEMI, recent SCAD, here with chest pain over the past 5 days, worse last night with nasuea, lightheadedness and palpitations today. Hemodynamically stable. Mild pain currently. ECG reviewed and interpreted by me: Sinus rhythm 68 bpm, short WV with WV interval of 114, T wave inversions are noted in lead II, 3, aVF, V4 to V6 -findings are similar to prior ECG from 05/05. Patient took ASA prior to arrival. Labs reviewed and trop nl. K 3.3 - Will give kdur. 7:20 -- [place] [facility] [place]. I relayed details of case to transfer nurse. ecg sent. Awaiting call back. 8:10 -- Spoke with Dr. Pritchard cardiology at [facility]. I discussed the patient presentation and course including diagnostics with Dr. Pritchard. She was able to review part of the EKG. She also reviewed past medical history at [facility]. She noted that cardiac catheterization last week revealed no evidence of disease and that this was reassuring. She noted that it would be unlikely for patient to have recurrent scad. She felt likely related to spasm and recommends considering treatment with amlodipine or imdur (although patient had PATTERSON with this). She recommended admitting the patient here at [facility] for serial cardiac enzymes and to obtain echocardiogram. She did not feel transfer indicated. I reviewed the ECG findings with Dr. Pritchard. She noted that she could not see V4-6. I described findings to her. I will resend ecg for review. Plan to admit. 8:30 -- I spoke with Dr. Reaves who requesting bridging orders to the floor. Care transitioned to Dr. Reaves. Plan discussed with patient who is in agreement. HPI General Mode of arrival: ambulatory. Date/Time Provider Initiated Documentation: 08/26/18 06:33. Limitations to Documentation: no limitations. Information obtained by: patient. HPI Narrative: 52-year-old female with history of spontaneous dissection of coronary artery, ischemic cardiomyopathy, and STEMI, history of tobacco use, GERD, presents with chief complaint of chest pain. Patient notes the chest pain started on Friday. Pain was initially mild. Pain was intermittent and occurring 2-3 times a day and lasting up to 1-2 hours per episode. Last night she had more severe crushing chest pain across her upper chest. This morning chest pain was less severe, currently rated 1/10, no modifiers, with associated generalized weakness, lightheadedness and nausea this morning. Patient did take her aspirin this morning. Related Data Home Medications Medication Instructions Recorded Confirmed esomeprazole magnesium [Nexium] 40 mg PO DAILY 01/07/18 08/26/18 ferrous sulfate 325 mg (65 mg 325 mg PO BID tab 01/29/18 08/26/18 iron) tablet medroxyprogesterone 10 mg tablet 10 mg PO DAILY PRN #10 tab 01/29/18 08/26/18 multivitamin tablet 1 tab PO DAILY tab 04/27/18 08/26/18 naproxen sodium [Aleve] 1 tab PO PRN PRN 05/25/18 08/26/18 amlodipine mg PO DAILY 08/26/18 Previous Rx's Medication Instructions Recorded medroxyprogesterone 10 mg tablet 10 mg PO DAILY PRN #10 tab 01/29/18 Allergies Allergy/AdvReac Type Severity Reaction Status Date / Time nickel AdvReac Intermediate Hives Unverified 05/25/18 09:42 pine and spruce AdvReac Intermediate Hives Uncoded 05/25/18 09:42 General Stated Complaint: Chest Pain [place]: 2 Review of Systems Review of Systems All systems reviewed & are unremarkable except as noted in HPI and below Constitutional Denies fever(s) Cardiovascular Reports chest pain, Denies syncope, Reports lightheadedness, Reports palpitations and Denies dyspnea Respiratory Denies dyspnea Neurologic Denies syncope Endocrine Reports palpitations PFSH Medical History Spontaneous dissection of coronary artery (Chronic) NSTEMI (non-ST elevated myocardial infarction) (Resolved) Chest pain due to gastrointestinal reflux disease (Acute) Arthropathia Dyspepsia Exercise induced bronchospasm Fatigue Jaw pain Leg cramps, sleep related Malaise and fatigue Subclinical hypothyroidism TMJ (temporomandibular joint syndrome) Surgical History section EGD - IV Sedation (10/23/16) Repair of inguinal hernia (02/28/16) Family History Brother Diabetes Paternal Grandmother Myocardial infarct Hx of CABG Daughter Celiac disease Father Crohn's disease Mother Prediabetes Social History Smoking/Tobacco Use Status: Former Tobacco Use Quit Date: 05/25/18 Second Hand Exposure: Yes Alcohol Intake: never Drug use: Never Substance use type: does not use Household members: spouse Number of Children: 3 current occupation: [employer] work, ([phone] steps/d) Seatbelt use: always Do you feel safe at home: Yes Do you feel safe in your relationship?: Yes History History 3 Para Hx # Term Pregnancies 3 Multiple births Hx # Pregnancies Ectopic pregnancies AB induced Hx Number of Living Children AB spontaneous Exam Const General: cooperative, comfortable, no acute distress and well developed Orientation: alert and awake HENMT Head: normocephalic and atraumatic Mouth: moist mucous membranes Eyes Conjunctivae: normal conjunctivae Sclera: normal sclerae Neck Neck: trachea midline and supple Chest Chest: no tenderness Resp Auscultation: clear to auscultation bilaterally, no rales, no rhonchi and no wheezes Cardio Jugular venous pressure: no JVD Rate: regular rate and not tachycardic Rhythm: regular rhythm GI Palpation: soft, not firm, no guarding, no masses, not rigid and nontender Skin General skin exam: no rashes or lesions noted Neuro General: alert, awake, oriented x3 and tone normal Extrem General: no calf tenderness bilaterally and no edema Psych Appearance: grossly normal Mental Status: mental status grossly normal Course Vital Signs Temperature 36.8 C 08/26/18 06:33 Pulse 75 08/26/18 06:33 Respiratory Rate 20 08/26/18 06:33 Blood Pressure 132/72 08/26/18 06:33 Pulse Oximetry 100 08/26/18 06:33 Temperature 36.8 C 08/26/18 06:33 Temperature Source Temporal Artery Scan 08/26/18 06:33 Pulse 75 08/26/18 06:33 Respiratory Rate 20 08/26/18 06:38 Respiratory Effort Non-Labored 08/26/18 06:38 Respiratory Depth Normal 08/26/18 06:38 Respiratory Pattern Normal 08/26/18 06:38 Blood Pressure 132/72 08/26/18 06:33 Blood Pressure Position Sitting 08/26/18 06:33 Pulse Oximetry 100 08/26/18 06:33 Oxygen Delivery Method Room Air 08/26/18 06:33 Oxygen Flow Rate 0 08/26/18 06:33 Pain Level 1 08/26/18 06:33 Lab/Test Results Lab/Test Results: Laboratory Tests Range/Units 08/26/18 06:30 WBC (4.4-10.8) k/cumm 4.88 RBC (4.00-5.20) m/cumm 4.55 Hgb (12.0-15.5) g/dL 14.0 Hct (36.0-46.0) % 42.1 MCV (80-95) fL 92.5 MCH (27.0-33.0) pg 30.8 MCHC (32.0-36.0) g/dL 33.3 RDW (11.7-14.6) % 12.6 Plt Count (130-400) x1000/uL 180 MPV (8.0-11.0) fL 12.9 H Immature Gran % 0.0 Neutrophils % 63.5 Lymphocytes % 25.2 Monocytes % 7.8 Eosinophils % 2.5 Basophils % 1.0 Absolute Neutrophils (1.2-6.7) k/cumm 3.10 Absolute Lymphocytes (1.2-3.4) k/cumm 1.23 Absolute Monocytes (0.11-0.7) k/cumm 0.38 Absolute Eosinophils (0.0-0.7) k/cumm 0.12 Absolute Basophils (0.0-0.2) k/cumm 0.05
[2018-08-26 07:13] LABS: ALT 18 U/L (12-78); AST 12 U/L (15-37); Albumin 3.5 g/dL (3.4-5.0); Alkaline Phosphatase 57 U/L (46-116); Anion Gap 10.1 mmol/L (3-11); BUN 16 mg/dL (7-18); Bilirubin, Total 0.4 mg/dL (0.2-1.0); CO2 25.9 mmol/L (21.0-32.0); CREATININE 0.82 mg/dL (0.55-1.02); Calcium 8.7 mg/dL (8.5-10.1); Chloride 102 mmol/L (98-107); Glucose 108 mg/dL (70-100); Magnesium 1.9 mg/dL (1.8-2.4); Potassium 3.3 mmol/L (3.5-5.1); Sodium 138 mmol/L (136-145); Total Protein 7.2 g/dL (6.4-8.2)
[2018-08-26 07:17] LABS: Troponin I < 0.02 ng/mL (0.00-0.06)
--- NOTE | 2018-08-26 07:18 | ED.GENADUL_ITS ---
Discharge Plan Disposition Patient Disposition: [facility] INPATIENT Discharge Details Chief Complaint: Chest Pain Clinical Impression: Chest pain Primary Care Provider: Cam Humphries ED Provider: Richard Arriaza Home Meds and New Rx's Prescriptions: No Action ferrous sulfate [FeroSul] 325 mg (65 mg iron) tablet 325 mg PO BID RF: 0 medroxyprogesterone 10 mg tablet 10 mg PO DAILY PRN (Reason: menorrhagia) Qty: 10 RF: 0 multivitamin [Daily Multiple] tablet 1 tab PO DAILY RF: 0 esomeprazole magnesium [Nexium] 40 MG capsule,delayed release(DR/EC) 40 mg PO DAILY RF: 0 naproxen sodium [Aleve] 220 mg Tablet 1 tab PO PRN PRNRF: 0 amlodipine 2.5 mg Tablet PO DAILY RF: 0 Medical Decision Making 7:15 --52-year-old female with history of an STEMI, recent SCAD, here with chest pain over the past 5 days, worse last night with nasuea, lightheadedness and palpitations today. Hemodynamically stable. Mild pain currently. ECG reviewed and interpreted by me: Sinus rhythm 68 bpm, short SD with SD interval of 114, T wave inversions are noted in lead II, 3, aVF, V4 to V6 - findings are similar to prior ECG from 05/05. Patient took ASA prior to arrival. Labs reviewed and trop nl. K 3.3 - Will give kdur. 7:20 -- [place] [facility] [place]. I relayed details of case to transfer nurse. ecg sent. Awaiting call back. 8:10 -- Spoke with Dr. Pritchard cardiology [place] [facility] [place] I discussed the patient presentation and course including diagnostics with Dr. Pritchard. She was able to review part of the EKG. She also reviewed past medical history at [facility]. She noted that cardiac catheterization last week revealed no evidence of disease and that this was reassuring. She noted that it would be unlikely for patient to have recurrent scad. She felt likely related to spasm and recommends considering treatment with amlodipine or imdur (although patient had PATTERSON with this). She recommended admitting the patient here at [facility] for serial cardiac enzymes and to obtain echocardiogram. She did not feel transfer indicated. I reviewed the ECG findings with Dr. Pritchard. She noted that she could not see V4-6. I described findings to her. I will resend ecg for review. Plan to admit. 8:30 -- I spoke with Dr. Reaves who requesting bridging orders to the floor. Care transitioned to Dr. Reaves. Plan discussed with patient who is in agreement. HPI General Mode of arrival: ambulatory . Date/Time Provider Initiated Documentation: 08/26/18 06:33 . Limitations to Documentation: no limitations . Information obtained by: patient . HPI Narrative: 52-year-old female with history of spontaneous dissection of coronary artery, ischemic cardiomyopathy, and STEMI, history of tobacco use, GERD, presents with chief complaint of chest pain. Patient notes the chest pain started on Friday. Pain was initially mild. Pain was intermittent and occurring 2-3 times a day and lasting up to 1-2 hours per episode. Last night she had more severe crushing chest pain across her upper chest. This morning chest pain was less severe, currently rated 1/10, no modifiers, with associated generalized weakness, lightheadedness and nausea this morning. Patient did take her aspirin this morning. Related Data Home Medications Medication Instructions Recorded Confirmed esomeprazole magnesium [Nexium] 40 mg PO DAILY 01/07/18 08/26/18 ferrous sulfate 325 mg (65 mg 325 mg PO BID tab 01/29/18 08/26/18 iron) tablet medroxyprogesterone 10 mg tablet 10 mg PO DAILY PRN #10 tab 01/29/18 08/26/18 multivitamin tablet 1 tab PO DAILY tab 04/27/18 08/26/18 naproxen sodium [Aleve] 1 tab PO PRN PRN 05/25/18 08/26/18 amlodipine mg PO DAILY 08/26/18 Previous Rx's Medication Instructions Recorded medroxyprogesterone 10 mg tablet 10 mg PO DAILY PRN #10 tab 01/29/18 Allergies Allergy/AdvReac Type Severity Reaction Status Date / Time nickel AdvReac Intermediate Hives Unverified 05/25/18 09:42 pine and spruce AdvReac Intermediate Hives Uncoded 05/25/18 09:42 General Stated Complaint: Chest Pain [place]: 2 Review of Systems Review of Systems All systems reviewed & are unremarkable except as noted in HPI and below Constitutional Denies fever(s) Cardiovascular Reports chest pain, Denies syncope, Reports lightheadedness, Reports palpitations and Denies dyspnea Respiratory Denies dyspnea Neurologic Denies syncope Endocrine Reports palpitations PFSH Medical History Spontaneous dissection of coronary artery (Chronic) NSTEMI (non-ST elevated myocardial infarction) (Resolved) Chest pain due to gastrointestinal reflux disease (Acute) Arthropathia Dyspepsia Exercise induced bronchospasm Fatigue Jaw pain Leg cramps, sleep related Malaise and fatigue Subclinical hypothyroidism TMJ (temporomandibular joint syndrome) Surgical History section EGD - IV Sedation (10/23/16) Repair of inguinal hernia (02/28/16) Family History Brother Diabetes Paternal Grandmother Myocardial infarct Hx of CABG Daughter Celiac disease Father Crohn's disease Mother Prediabetes Social History Smoking/Tobacco Use Status: Former Tobacco Use Quit Date: 05/25/18 Second Hand Exposure: Yes Alcohol Intake: never Drug use: Never Substance use type: does not use Household members: spouse Number of Children: 3 current occupation: [employer] work, ([phone] steps/d) Seatbelt use: always Do you feel safe at home: Yes Do you feel safe in your relationship?: Yes History History 3 Para Hx # Term Pregnancies 3 Multiple births Hx # Pregnancies Ectopic pregnancies AB induced Hx Number of Living Children AB spontaneous Exam Const General: cooperative, comfortable, no acute distress and well developed Orientation: alert and awake HENMT Head: normocephalic and atraumatic Mouth: moist mucous membranes Eyes Conjunctivae: normal conjunctivae Sclera: normal sclerae Neck Neck: trachea midline and supple Chest Chest: no tenderness Resp Auscultation: clear to auscultation bilaterally, no rales, no rhonchi and no wheezes Cardio Jugular venous pressure: no JVD Rate: regular rate and not tachycardic Rhythm: regular rhythm GI Palpation: soft, not firm, no guarding, no masses, not rigid and nontender Skin General skin exam: no rashes or lesions noted Neuro General: alert, awake, oriented x3 and tone normal Extrem General: no calf tenderness bilaterally and no edema Psych Appearance: grossly normal Mental Status: mental status grossly normal Course Vital Signs Temperature 36.8 C 08/26/18 06:33 Pulse 75 08/26/18 06:33 Respiratory Rate 20 08/26/18 06:33 Blood Pressure 132/72 08/26/18 06:33 Pulse Oximetry 100 08/26/18 06:33 Temperature 36.8 C 08/26/18 06:33 Temperature Source Temporal Artery Scan 08/26/18 06:33 Pulse 75 08/26/18 06:33 Respiratory Rate 20 08/26/18 06:38 Respiratory Effort Non-Labored 08/26/18 06:38 Respiratory Depth Normal 08/26/18 06:38 Respiratory Pattern Normal 08/26/18 06:38 Blood Pressure 132/72 08/26/18 06:33 Blood Pressure Position Sitting 08/26/18 06:33 Pulse Oximetry 100 08/26/18 06:33 Oxygen Delivery Method Room Air 08/26/18 06:33 Oxygen Flow Rate 0 08/26/18 06:33 Pain Level 1 08/26/18 06:33 Lab/Test Results Lab/Test Results: Laboratory Tests Range/Units 08/26/18 06:30 WBC (4.4-10.8) k/cumm 4.88 RBC (4.00-5.20) m/cumm 4.55 Hgb (12.0-15.5) g/dL 14.0 Hct (36.0-46.0) % 42.1 MCV (80-95) fL 92.5 MCH (27.0-33.0) pg 30.8 MCHC (32.0-36.0) g/dL 33.3 RDW (11.7-14.6) % 12.6 Plt Count (130-400) x1000/uL 180 MPV (8.0-11.0) fL 12.9 H Immature Gran % 0.0 Neutrophils % 63.5 Lymphocytes % 25.2 Monocytes % 7.8 Eosinophils % 2.5 Basophils % 1.0 Absolute Neutrophils (1.2-6.7) k/cumm 3.10 Absolute Lymphocytes (1.2-3.4) k/cumm 1.23 Absolute Monocytes (0.11-0.7) k/cumm 0.38 Absolute Eosinophils (0.0-0.7) k/cumm 0.12 Absolute Basophils (0.0-0.2) k/cumm 0.05
[2018-08-26] MEDS: Potassium Chloride 10 MEQ TABCR 20 MEQ PO (07:45)
[2018-08-26] MEDS: amLODIPine 2.5 MG TAB PO (08:37)
[2018-08-26 14:41] LABS: Troponin I < 0.02 ng/mL (0.00-0.06)
--- NOTE | 2018-08-26 16:21 | W.CARDCONSUL ---
Date of service: 08/26/18 Assessment and Plan (1) Chest pain: Start date: 08/25/18 Current visit: Yes Status: Acute Pain is atypical. No evidence of ongoing ischemia. Need to consider microvascular disease vasospasm and noncardiac etiology such as musculoskeletal. Continue aspirin, metoprolol and amlodipine at current dosage. Trend troponin every 6 hours x3. Obtain echocardiogram. If no wall motion abnormality or depressed LV function obtain nuclear stress test, but would discuss this with her primary scientific recruiter at [facility] before proceeding. Qualifiers: Chest pain type: precordial pain Qualified Code(s): R07.2 - Precordial pain (2) Coronary artery dissection: Start date: 05/25/18 Current visit: Yes Status: Acute History of Present Illness Chief Complaint: Chest pain Narrative: 52-year-old woman with GERD and spontaneous coronary artery dissection. May 2018 non-STEMI found to have LAD dissection. No intervention done. Workup for fibromuscular dysplasia was negative. July 2018 recurrent chest pain doing cardiac rehab. Repeat cardiac catheterization showed only mild luminal irregularities in the LAD. The left main left circumflex and RCA were normal. EF was 60% and wall motion was normal. Amlodipine was added to metoprolol. Patient continues to experience on and off dull chest pain. The pain is focal and located in the fourth left intercostal space. As not radiate. It is not related to exertion, movement, breathing or food intake. Sometimes it responds to nitro. Yet, she did not tolerate IMDUR. Symptoms worsened to the point that she went to the emergency department today. EKG showed nonspecific ST changes unchanged from prior. First troponin was negative. Telemetry shows sinus bradycardia, no ectopy, ventricular tachycardia, higher degree heart block or critical pauses. Is currently chest pain-free. 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 She denies shortness of breath, PND, edema, palpitations, syncope, claudication, focal deficits, bleeding, GI or symptoms. ROS: 10 point ROS was performed; all pertinent positives as mentioned in HPI, all others negative. Allergies reviewed. Medications reviewed. Cardiac medications include Aspirin 81 mg daily Amlodipine 5 mill grams daily Lisinopril 2.5 mg daily Metoprolol succinate 25 mill grams daily PFSH reviewed; pertinent history as mentioned HPI. Social history: Non-smoker. No alcohol. Family history: No premature coronary artery disease. PHYSICAL EXAM General: pleasant, no acute distress HEENT: Anicteric, mucus membranes moist Neck: Supple, normal JVP, brisk carotid upstrokes, no bruits Chest: Non-tender Lungs: Clear to auscultation bilaterally, no crackles or wheezes Cardiac: Keith, regular rhythm, normal S1S2, no murmurs Abdomen: Soft, non-tender, bowel sounds present Extremities: No clubbing, cyanosis or edema, equal pulses in all 4 extremities Skin: Warm and dry, no rashes Neuro: Alert and oriented x3, grossly intact DATA: Available records including laboratory and cardiac studies reviewed; pertinent findings as mentioned in HPI Consults Consult date: 08/26/18 Requesting physician: Manuela Reaves [facility] Medical History Spontaneous dissection of coronary artery (Chronic) NSTEMI (non-ST elevated myocardial infarction) (Resolved) Chest pain due to gastrointestinal reflux disease (Acute) Arthropathia Dyspepsia Exercise induced bronchospasm Fatigue Jaw pain Leg cramps, sleep related Malaise and fatigue Subclinical hypothyroidism TMJ (temporomandibular joint syndrome) Surgical History section EGD - IV Sedation (10/23/16) Repair of inguinal hernia (02/28/16) Family History Brother Diabetes Paternal Grandmother Myocardial infarct Hx of CABG Daughter Celiac disease Father Crohn's disease Mother Prediabetes Social History Smoking/Tobacco Use Status: Former Tobacco Use Quit Date: 05/25/18 Second Hand Exposure: Yes Alcohol Intake: never Drug use: Never Substance use type: does not use Household members: spouse Number of Children: 3 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, (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) Seatbelt use: always Do you feel safe at home: Yes Do you feel safe in your relationship?: Yes History History 3 Para Hx # Term Pregnancies 3 Multiple births Hx # Pregnancies Ectopic pregnancies AB induced Hx Number of Living Children AB spontaneous Results Last Vital Signs Temp 36.8 C 08/26/18 10:58 Pulse 56 L 08/26/18 15:00 Resp 18 08/26/18 10:12 BP 122/73 08/26/18 10:58 Pulse Ox 99 08/26/18 10:58 Labs : 08/26/18 06:30 08/26/18 06:30 Laboratory Results - last 24 hr 08/26/18 08/26/18 08/26/18 06:30 06:30 14:07 WBC 4.88 RBC 4.55 Hgb 14.0 Hct 42.1 MCV 92.5 MCH 30.8 MCHC 33.3 RDW 12.6 Plt Count 180 MPV 12.9 H Immature Gran % 0.0 Neutrophils % 63.5 Lymphocytes % 25.2 Monocytes % 7.8 Eosinophils % 2.5 Basophils % 1.0 Absolute Neutrophils 3.10 Absolute Lymphocytes 1.23 Absolute Monocytes 0.38 Absolute Eosinophils 0.12 Absolute Basophils 0.05 Sodium 138 Potassium 3.3 L Chloride 102 Carbon Dioxide 25.9 Anion Gap 10.1 BUN 16 Creatinine 0.82 Estimated GFR/1.73 m2 >= 60.00 Glucose 108 H Calcium 8.7 Magnesium 1.9 Total Bilirubin 0.4 AST 12 L ALT 18 Alkaline Phosphatase 57 Troponin I < 0.02 < 0.02 Total Protein 7.2 Albumin 3.5
[2018-08-26] MEDS: Mylanta Suspension 30 ML CUP PO (16:30)
[2018-08-26] MEDS: Normal Saline Flush 10 ML SYR IVP (17:24)
--- NOTE | 2018-08-26 17:30 | W.PM.HP.N ---
Date of service: 08/26/18 Time of Service: 14:00 Assessment and Plan (1) Chest pain: Current visit: Yes Status: Acute While the fact that this is getting worse with nitroglycerin is arguing against it being coronary in origin and the patient does have a history of GERD with quite an extensive outpatient workup, I do wonder whether there may have been a rn review error with the cardiac cath results from 07/2018 as the patient was reported to have such extensive LAD disease in 05/2018 (especially so since she hasn't been on plavix). Patient was evaluated by Dr Stewart here and is felt to require an echo, which was ordered earlier today but won't be done until tomorrow. I am concerned about nonsustained Vtach (7 beats) just reported to me in conjunction with a possibility of that severe LAD disease (>70%) still being in place. I have placed a call with [facility] transfer center to at a minimum obtain [facility] cardiology opinion on the current situation. The family expressed to nursing staff that they would be more comfortable being at [facility] as well. Transfer will be discussed. Qualifiers: Chest pain type: precordial pain Qualified Code(s): R07.2 - Precordial pain (2) V-tach: Current visit: Yes Status: Acute As above - I worry that this is an indication of an underlying unstable coronary lesion not seen/not properly transcribed on prior cardiac cath report. Contacting [facility] (3) Coronary artery dissection: Current visit: Yes Status: Chronic Resolved per last cardiac cath report. (4) GERD (gastroesophageal reflux disease): Current visit: Yes Status: Chronic Trialing PPI IV - could be cause of chest pain (but would not explain Vtach) (5) Ischemic cardiomyopathy: Current visit: Yes Status: Chronic Patient reports improvement in her EF - I am unfortunately unable to see her EF in the medical record. Echo is pending. Euvolemic. (6) Discharge planning issues: Current visit: Yes Status: Acute Full code Transfer to [facility] is being requested (7) DVT prophylaxis: Current visit: Yes Status: Acute Holding lovenox at this time until more is known about possible transfer plans - SCDs + TEDs History of Present Illness Chief Complaint: chest pain Narrative: Ms Betancourt is a 62 year old female with PMHx of NSTEMI in setting of spontaneous coronary artery dissection with significant LAD disease noted at that time, ICMO with EF I am unable to find, but per patient in the 40's with improvement recently), severe GERD, as well as arthritis, who presented to [facility] ED this morning after an onset of dull L-sided chest pain, nausea, generalized weakness and dizziness this morning as she was getting ready for work. There was no shortness of breath, or syncope. The patient states that last night she had palpitations. She has been getting these episodes of chest pain 2-3 times per day, that they last 1-2 hours. She does not think that they are associated with food. She states she actually watches what she eats. She was initiated on amlodipine 2 weeks ago at [facility] when she had her repeat cardiac cath (08/13/18). At that time, the cardiac cath revealed no SCAD. Interestingly, it also did not demonstrate the LAD disease noted on the original cardiac cath in May of 2018, even though she was off of plavix due to heavy menstrual bleeding. It was felt at that time that her chest pains were possibly due to vasospasm. She was started on norvasc and discharged home. Patient feels that since being started on amlodipine, her chest pains actually got worse. When the patient presented to [facility] ED this am, [facility] cardiology recommended trending her troponins, continuing norvasc and obtaining an echocardiogram. The patient did have another episode of chest pain this afternoon. This got worse with nitroglycerin. At some times, the pain does feel like burning. This pain also moved to the right side of her chest somewhat. The patient denies actual heartburn. Review of Systems Review of Systems 12 systems reviewed. Pertinent positives and negatives are as per HPI. PFS Medical History Spontaneous dissection of coronary artery (Chronic) NSTEMI (non-ST elevated myocardial infarction) (Resolved) Chest pain due to gastrointestinal reflux disease (Acute) Arthropathia Dyspepsia Exercise induced bronchospasm Fatigue Jaw pain Leg cramps, sleep related Malaise and fatigue Subclinical hypothyroidism TMJ (temporomandibular joint syndrome) Surgical History section EGD - IV Sedation (10/23/16) Repair of inguinal hernia (02/28/16) Family History Brother Diabetes Paternal Grandmother Myocardial infarct Hx of CABG Daughter Celiac disease Father Crohn's disease Mother Prediabetes Social History Smoking/Tobacco Use Status: Former Tobacco Use Quit Date: 05/25/18 Second Hand Exposure: Yes Alcohol Intake: never Drug use: Never Substance use type: does not use Household members: spouse Number of Children: 3 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, 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) Seatbelt use: always Do you feel safe at home: Yes Do you feel safe in your relationship?: Yes History History 3 Para Hx # Term Pregnancies 3 Multiple births Hx # Pregnancies Ectopic pregnancies AB induced Hx Number of Living Children AB spontaneous Meds Home Medications Medication Instructions Recorded Confirmed Type ferrous sulfate 325 mg (65 mg 325 mg PO DAILY tab 01/29/18 08/26/18 History iron) tablet multivitamin tablet 1 tab PO DAILY tab 04/27/18 08/26/18 History amlodipine 5 mg PO DAILY 08/26/18 08/26/18 History aspirin 81 mg PO DAILY 08/26/18 08/26/18 History cholecalciferol (vitamin D3) 2,000 unit PO DAILY 08/26/18 08/26/18 History [Vitamin D3] glucosamine sulfate [Glucosamine] 3,000 mg PO DAILY 08/26/18 08/26/18 History lisinopril 2.5 mg PO DAILY 08/26/18 08/26/18 History metoprolol succinate [Toprol XL] 25 mg PO DAILY 08/26/18 08/26/18 History nitroglycerin 0.4 mg SUBLINGUAL Q5-6M PRN 08/26/18 08/26/18 History pantoprazole 40 mg PO DAILY 08/26/18 08/26/18 History Allergies Allergy/AdvReac Type Severity Reaction Status Date / Time nickel AdvReac Intermediate Hives Unverified 05/25/18 09:42 pine and spruce AdvReac Intermediate Hives Uncoded 05/25/18 09:42 Exam Narrative Exam Narrative: General: Very pleasant middle aged female, mildly anxious, sitting up in bed Neuro: A&OX3, no focal deficits Psychiatric: other than very mild anxiety, appropriate speech pattern/content Skin: intact HEENT: EOMI, MMM, clear oropharynx, no submandibular or cervical lymphadenopathy, no goiter or JVD Heart: RRR, no m/r/g Lungs: CTAB GI: abdomen is soft, nontender, nondistended Extremities: no e/c/c BLE's, trace pedal pulses B; B feet are cool Results Imaging Additional studies: EKG #1: HR 68, NSR, nonspecific ST segment depressions EKG #2: HR 62, NSR, unchanged from prior Labs : 08/26/18 06:30 08/26/18 06:30 Laboratory Results - last 24 hr 08/26/18 08/26/18 08/26/18 06:30 06:30 14:07 WBC 4.88 RBC 4.55 Hgb 14.0 Hct 42.1 MCV 92.5 MCH 30.8 MCHC 33.3 RDW 12.6 Plt Count 180 MPV 12.9 H Immature Gran % 0.0 Neutrophils % 63.5 Lymphocytes % 25.2 Monocytes % 7.8 Eosinophils % 2.5 Basophils % 1.0 Absolute Neutrophils 3.10 Absolute Lymphocytes 1.23 Absolute Monocytes 0.38 Absolute Eosinophils 0.12 Absolute Basophils 0.05 Sodium 138 Potassium 3.3 L Chloride 102 Carbon Dioxide 25.9 Anion Gap 10.1 BUN 16 Creatinine 0.82 Estimated GFR/1.73 m2 >= 60.00 Glucose 108 H Calcium 8.7 Magnesium 1.9 Total Bilirubin 0.4 AST 12 L ALT 18 Alkaline Phosphatase 57 Troponin I < 0.02 < 0.02 Total Protein 7.2 Albumin 3.5 Last Vital Signs Temp 37.4 C 08/26/18 16:50 Pulse 74 08/26/18 16:50 Resp 20 08/26/18 16:50 BP 117/66 08/26/18 16:50 Pulse Ox 96 08/26/18 16:50
--- NOTE | 2018-08-26 17:33 | HPE_ITS ---
Date of service: 08/26/18 Time of Service: 14:00 Assessment and Plan (1) Chest pain: Current visit: Yes Status: Acute While the fact that this is getting worse with nitroglycerin is arguing against it being coronary in origin and the patient does have a history of GERD with quite an extensive outpatient workup, I do wonder whether there may have been a saw feeder error with the cardiac cath results from 07/2018 as the patient was reported to have such extensive LAD disease in 05/2018 (especially so since she hasn't been on plavix). Patient was evaluated by Dr Stewart here and is felt to require an echo, which was ordered earlier today but won't be done until tomorrow. I am concerned about nonsustained Vtach (7 beats) just reported to me in conjunction with a possibility of that severe LAD disease (>70%) still being in place. I have placed a call with [facility] [place] to at a minimum obtain [facility] cardiology opinion on the current situation. The family expressed to nursing staff that they would be more comfortable being at [facility] as well. Transfer will be discussed. Qualifiers: Chest pain type: precordial pain Qualified Code(s): R07.2 - Precordial pain (2) V-tach: Current visit: Yes Status: Acute As above - I worry that this is an indication of an underlying unstable coronary lesion not seen/not properly transcribed on prior cardiac cath report. Contacting [facility] (3) Coronary artery dissection: Current visit: Yes Status: Chronic Resolved per last cardiac cath report. (4) GERD (gastroesophageal reflux disease): Current visit: Yes Status: Chronic Trialing PPI IV - could be cause of chest pain (but would not explain Vtach) (5) Ischemic cardiomyopathy: Current visit: Yes Status: Chronic Patient reports improvement in her EF - I am unfortunately unable to see her EF in the medical record. Echo is pending. Euvolemic. (6) Discharge planning issues: Current visit: Yes Status: Acute Full code Transfer to [facility] is being requested (7) DVT prophylaxis: Current visit: Yes Status: Acute Holding lovenox at this time until more is known about possible transfer plans - SCDs + TEDs History of Present Illness Chief Complaint: chest pain Narrative: Ms Betancourt is a 62 year old female with PMHx of NSTEMI in setting of spontaneous coronary artery dissection with significant LAD disease noted at that time, ICMO with EF I am unable to find, but per patient in the 40's with improvement recently), severe GERD, as well as arthritis, who presented to [facility] ED this morning after an onset of dull L-sided chest pain, nausea, generalized weakness and dizziness this morning as she was getting ready for work. There was no shortness of breath, or syncope. The patient states that last night she had palpitations. She has been getting these episodes of chest pain 2-3 times per day, that they last 1-2 hours. She does not think that they are associated with food. She states she actually watches what she eats. She was initiated on amlodipine 2 weeks ago at [facility] when she had her repeat cardiac cath (08/13/18). At that time, the cardiac cath revealed no SCAD. Interestingly, it also did not demonstrate the LAD disease noted on the original cardiac cath in May of 2018, even though she was off of plavix due to heavy menstrual bleeding. It was felt at that time that her chest pains were possibly due to vasospasm. She was started on norvasc and discharged home. Patient feels that since being started on amlodipine, her chest pains actually got worse. When the patient presented to [facility] ED this am, [facility] cardiology recommended trending her troponins, continuing norvasc and obtaining an echocardiogram. The patient did have another episode of chest pain this afternoon. This got worse with nitroglycerin. At some times, the pain does feel like burning. This pain also moved to the right side of her chest somewhat. The patient denies actual heartburn. Review of Systems Review of Systems 12 systems reviewed. Pertinent positives and negatives are as per HPI. PFS Medical History Spontaneous dissection of coronary artery (Chronic) NSTEMI (non-ST elevated myocardial infarction) (Resolved) Chest pain due to gastrointestinal reflux disease (Acute) Arthropathia Dyspepsia Exercise induced bronchospasm Fatigue Jaw pain Leg cramps, sleep related Malaise and fatigue Subclinical hypothyroidism TMJ (temporomandibular joint syndrome) Surgical History section EGD - IV Sedation (10/23/16) Repair of inguinal hernia (02/28/16) Family History Brother Diabetes Paternal Grandmother Myocardial infarct Hx of CABG Daughter Celiac disease Father Crohn's disease Mother Prediabetes Social History Smoking/Tobacco Use Status: Former Tobacco Use Quit Date: 05/25/18 Second Hand Exposure: Yes Alcohol Intake: never Drug use: Never Substance use type: does not use Household members: spouse Number of Children: 3 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, (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) Seatbelt use: always Do you feel safe at home: Yes Do you feel safe in your relationship?: Yes History History 3 Para Hx # Term Pregnancies 3 Multiple births Hx # Pregnancies Ectopic pregnancies AB induced Hx Number of Living Children AB spontaneous Meds Home Medications Medication Instructions Recorded Confirmed Type ferrous sulfate 325 mg (65 mg 325 mg PO DAILY tab 01/29/18 08/26/18 History iron) tablet multivitamin tablet 1 tab PO DAILY tab 04/27/18 08/26/18 History amlodipine 5 mg PO DAILY 08/26/18 08/26/18 History aspirin 81 mg PO DAILY 08/26/18 08/26/18 History cholecalciferol (vitamin D3) 2,000 unit PO DAILY 08/26/18 08/26/18 History [Vitamin D3] glucosamine sulfate [Glucosamine] 3,000 mg PO DAILY 08/26/18 08/26/18 History lisinopril 2.5 mg PO DAILY 08/26/18 08/26/18 History metoprolol succinate [Toprol XL] 25 mg PO DAILY 08/26/18 08/26/18 History nitroglycerin 0.4 mg SUBLINGUAL Q5-6M PRN 08/26/18 08/26/18 History pantoprazole 40 mg PO DAILY 08/26/18 08/26/18 History Allergies Allergy/AdvReac Type Severity Reaction Status Date / Time nickel AdvReac Intermediate Hives Unverified 05/25/18 09:42 pine and spruce AdvReac Intermediate Hives Uncoded 05/25/18 09:42 Exam Narrative Exam Narrative: General: Very pleasant middle aged female, mildly anxious, sitting up in bed Neuro: A&OX3, no focal deficits Psychiatric: other than very mild anxiety, appropriate speech pattern/content Skin: intact HEENT: EOMI, MMM, clear oropharynx, no submandibular or cervical lymphadenopathy, no goiter or JVD Heart: RRR, no m/r/g Lungs: CTAB GI: abdomen is soft, nontender, nondistended Extremities: no e/c/c BLE's, trace pedal pulses B; B feet are cool Results Imaging Additional studies: EKG #1: HR 68, NSR, nonspecific ST segment depressions EKG #2: HR 62, NSR, unchanged from prior Labs : 08/26/18 06:30 08/26/18 06:30 Laboratory Results - last 24 hr 08/26/18 08/26/18 08/26/18 06:30 06:30 14:07 WBC 4.88 RBC 4.55 Hgb 14.0 Hct 42.1 MCV 92.5 MCH 30.8 MCHC 33.3 RDW 12.6 Plt Count 180 MPV 12.9 H Immature Gran % 0.0 Neutrophils % 63.5 Lymphocytes % 25.2 Monocytes % 7.8 Eosinophils % 2.5 Basophils % 1.0 Absolute Neutrophils 3.10 Absolute Lymphocytes 1.23 Absolute Monocytes 0.38 Absolute Eosinophils 0.12 Absolute Basophils 0.05 Sodium 138 Potassium 3.3 L Chloride 102 Carbon Dioxide 25.9 Anion Gap 10.1 BUN 16 Creatinine 0.82 Estimated GFR/1.73 m2 >= 60.00 Glucose 108 H Calcium 8.7 Magnesium 1.9 Total Bilirubin 0.4 AST 12 L ALT 18 Alkaline Phosphatase 57 Troponin I < 0.02 < 0.02 Total Protein 7.2 Albumin 3.5 Last Vital Signs Temp 37.4 C 08/26/18 16:50 Pulse 74 08/26/18 16:50 Resp 20 08/26/18 16:50 BP 117/66 08/26/18 16:50 Pulse Ox 96 08/26/18 16:50
[2018-08-26] MEDS: LORazepam 0.5 MG TAB PO (19:04)
[2018-08-26] MEDS: amLODIPine 5 MG TAB PO (19:05)
--- NOTE | 2018-08-26 21:39 | NUR.NOTE ---
Nursing Note: Checked on this patient and asked if she was having any pain. Patient denied pain at this time. When asked if she has had any more chest pain the patient responded yes. Patient further stated that it has come and gone all evening but that it has not been any different than when she got the nitro earlier this evening
[2018-08-26 22:02] LABS: Troponin I < 0.02 ng/mL (0.00-0.06)
[2018-08-27] VITALS (9 sets, daily range): BP systolic 98–133; BP diastolic 58–87; PULSE 51–69; RESP 16–19; TEMP 36.4–36.8; O2SAT 97–99
[2018-08-27 07:13] LABS: HCT 43.2 % (36.0-46.0); Mean Corp. HGB Concentration 32.4 g/dL (32.0-36.0); Mean Corpuscular Hemoglobin 30.2 pg (27.0-33.0); Mean Corpuscular Volume 93.1 fL (80-95); Mean Platelet Volume 13.3 fL (8.0-11.0); Platelet Count 171 x1000/uL (130-400); RBC 4.64 m/cumm (4.00-5.20); RBC Distribution Width 12.7 % (11.7-14.6); White Blood Cell Count 5.37 k/cumm (4.4-10.8)
[2018-08-27 07:28] LABS: Anion Gap 8.3 mmol/L (3-11); BUN 18 mg/dL (7-18); CO2 27.7 mmol/L (21.0-32.0); CREATININE 0.77 mg/dL (0.55-1.02); Chloride 101 mmol/L (98-107); Glucose 104 mg/dL (70-100); Potassium 3.9 mmol/L (3.5-5.1); Sodium 137 mmol/L (136-145)
[2018-08-27 07:35] LABS: Magnesium 2.1 mg/dL (1.8-2.4); Troponin I < 0.02 ng/mL (0.00-0.06)
--- NOTE | 2018-08-27 10:35 | PHARADMIT ---
Admission Pharmacy Clinical Review Chest pain (Hx of GERD) Code Status Full Code Current Weight Wgt- 66.7 kg Renally Cleared and Narrow Therapeutic Index Meds CrCl~ 80.9 mL/min Meds-OK QTc Value / Action Taken QTc-414 na BP Control, Fever BP- 98/62 Tmax- 36.5C Electrolytes reviewed Na-137 K+3.9 Mag-2.1 DVT Prophylaxis Lovenox 40mg Opiate Usage / Scheduled Bowel Regimen Ordered No Yes Plt/SCr for Heparin / Enoxaparin Plts-171 SCr-0.77 INR for Warfarin na H/H stable, WBC/Bands H&H- 14.0/43.2 WBC- 5.37 Antibiotic appropriateness none Cultures and Sensitivities none Surgical ABX d/c within 24 hr na DM control / Insulin Dosing BG-104 Heart Failure (Check EF%) (DANIAL's, B-Block, Diuretics) Norvasc, Lisinopril, Toprol-XL, NTG IV to PO Switch No Home Meds Reviewed Yes Home Meds Not Ordered Glucosamine- Comments
[2018-08-27] MEDS: Aspirin 81 MG CHEW PO (10:54)
[2018-08-27] MEDS: Pantoprazole 40 MG TABCR PO (10:54)
[2018-08-27] MEDS: Multivitamin TAB 1 TAB PO (10:54)
[2018-08-27] MEDS: Metoprolol CR 25 MG TABCR PO (10:54)
[2018-08-27] MEDS: Ferrous Sulfate 325 MG TAB PO (10:55)
--- NOTE | 2018-08-27 12:25 | MERGE_ITS ---
*[facility]* *[facility]* [address] [place] [address] Date of study: 08/27/2018 Transthoracic Echocardiography M-mode, complete 2D, complete spectral Doppler, and color Doppler *STUDY CONCLUSIONS* Summary: 1. Left ventricle: The cavity size was normal. Systolic function was normal. The estimated ejection fraction was 55-60%. Diastolic parameters were normal. There was no evidence of elevated ventricular filling pressure by Doppler parameters. 2. Aortic valve: There was mild regurgitation. 3. Mitral valve: There was mild regurgitation. 4. Right ventricle: The cavity size was normal. Wall thickness was normal. Systolic function was normal. 5. Atrial septum: No defect or patent foramen ovale was identified. 6. Pulmonary arteries: Pulmonary systolic pressure was in the range of 20mm Hg to 30mm Hg. 7. Inferior vena cava: The vessel was patent and normal in size. The respirophasic diameter changes were in the normal range (greater than or equal to 50%), consistent with normal central venous pressure. *PATIENT PRESENTATION* Height: 172.7cm ((68in) ) S/D Pressure: 109 / 58 Weight: 68kg ((149.7lb) ) BSA: 1.81m^2 Test start time: 12:25 PM. Test stop time: 01:30 PM. CONSULTING Cam Humphries MD PERFORMING Unknown PERFORMING [facility] DIRECTOR OF CATEGORY MANAGEMENT Letty Childress, RT (R)(CT), [facility] ORDERING Manuela Reaves REFERRING Manuela Reaves *PROCEDURE DATA* Procedure information: The patient was identified by two identifiers. This study was interpreted by [facility]. Pertinent images and digital data are archived for permanent storage and are available for subsequent review. Comparison was made to the study of 02/13/2018. Study status: Routine. Transthoracic echocardiography. M-mode, complete 2D, complete spectral Doppler, and color Doppler. A Transthoracic Echocardiogram was performed. Scanning was performed from the parasternal, apical, subcostal, and suprasternal notch acoustic windows. Images were obtained using an [id number] cardiac ultrasound machine. Image quality was good. Study completion: The patient tolerated the procedure well. History: PMH: Chest pain. H/o coronary artery dissection. *CARDIAC ANATOMY* Left ventricle: The cavity size was normal. Systolic function was normal. The estimated ejection fraction was 55-60%. The tissue Doppler parameters were normal. Diastolic parameters were normal. There was no evidence of elevated ventricular filling pressure by Doppler parameters. Aortic valve: Trileaflet. Doppler: There was no stenosis. There was mild regurgitation. VTI ratio of LVOT to aortic valve: 0.8. Valve area (VTI): 2.4cm^2. Indexed valve area (VTI): 1.3cm^2/m^2. Peak velocity ratio of LVOT to aortic valve: 0.81. Valve area (Vmax): 2.4cm^2. Indexed valve area (Vmax): 1.3cm^2/m^2. Mean velocity ratio of LVOT to aortic valve: 0.86. Valve area (Vmean): 2.6cm^2. Indexed valve area (Vmean): 1.4cm^2/m^2. Mean gradient (S): 2.8mm Hg. Peak gradient (S): 4.8mm Hg. Aorta: Aortic root: The aortic root was normal in size. Ascending aorta: The ascending aorta was normal in size. Mitral valve: Doppler: There was no evidence for stenosis. There was mild regurgitation. Valve area by pressure half-time: 5cm^2. Indexed valve area by pressure half-time: 2.7cm^2/m^2. Left atrium: The atrium was normal in size. Atrial septum: No defect or patent foramen ovale was identified. Right ventricle: The cavity size was normal. Wall thickness was normal. Systolic function was normal. Pulmonic valve: Doppler: There was no evidence for stenosis. There was mild regurgitation. Peak gradient (S): 3mm Hg. Tricuspid valve: Doppler: There was mild regurgitation. Pulmonary artery: Poorly visualized. Pulmonary systolic pressure was in the range of 20mm Hg to 30mm Hg. Right atrium: The atrium was normal in size. Pericardium: There was no pericardial effusion. Systemic veins: Inferior vena cava: Well visualized. The vessel was patent and normal in size. The respirophasic diameter changes were in the normal range (greater than or equal to 50%), consistent with normal central venous pressure. Baseline ECG: Normal sinus rhythm. Measurements Left ventricle Value 02/13/2018 Reference LV ID, ED, PLAX 4.9 cm 4.9 3.5 - 6.0 LV ID, ES, PLAX 2.9 cm 3.6 2.1 - 4.0 LV PW thickness, ED, PLAX 0.8 cm 0.8 LV end-diastolic volume, 81 ml 99 1-p A2C LV ejection fraction, 1-p 57 % 54 A2C LV end-diastolic volume, 86 ml 97 1-p A4C LV ejection fraction, 1-p 61 % 51 A4C LV e', lateral 0.111 m/sec 0.126 LV E/e', lateral 6 6 LV e', medial 0.076 m/sec 0.114 LV E/e', medial 9 7 LV e', average 0.094 m/sec 0.12 LV E/e', average 7 6 Ventricular septum Value 02/13/2018 Reference IVS thickness, ED, PLAX 0.7 cm 0.7 LVOT Value 02/13/2018 Reference LVOT ID, A-P 1.9 cm 2.0 LVOT area 3 cm^2 3.2 LVOT peak velocity, S 0.89 m/sec 0.94 LVOT mean velocity, S 0.69 m/sec 0.55 LVOT VTI, S 18.5 cm 18.9 LVOT peak gradient, S 3.2 mm Hg 3.5 LVOT mean gradient, S 2.1 mm Hg 1.5 Stroke volume (SV), LVOT 55 ml 59 DP Stroke index (SV/bsa), 30 ml/m^2 33 LVOT DP Aortic valve Value 02/13/2018 Reference Aortic valve peak 1.1 m/sec 1.1 velocity, S Aortic valve mean 0.8 m/sec 0.75 velocity, S Aortic valve VTI, S 23.0 cm 22.0 Aortic mean gradient, S 2.8 mm Hg 2.5 Aortic peak gradient, S 4.8 mm Hg 4.6 VTI ratio, LVOT/AV 0.8 0.86 Aortic valve area, VTI 2.4 cm^2 2.7 Velocity ratio, peak, 0.81 0.88 LVOT/AV Aortic valve area, peak 2.4 cm^2 2.8 velocity Velocity ratio, mean, 0.86 0.73 LVOT/AV Aortic valve area, mean 2.6 cm^2 2.3 velocity Aortic valve area/bsa, 1.4 cm^2/m^2 1.3 mean velocity Aorta Value 02/13/2018 Reference Aortic root ID, ED 3.4 cm 3.3 Ascending aorta ID, A-P, S 2.9 cm 3.3 RVOT Value 02/13/2018 Reference RVOT VTI, S 17.4 cm Left atrium Value 02/13/2018 Reference LA ID, A-P, ES 2.5 cm 3.3 LA ID/bsa, A-P 1.4 cm/m^2 1.8 <=2.2 LA area, ES, A4C 12.9 cm^2 12.9 8.8 - 23.4 LA area, ES, A2C 15 cm^2 12 LA volume/bsa, ES, 1-p A4C 20 ml/m^2 LA volume, ES, 2-p 35 ml 31 LA volume/bsa, ES, 2-p 20 ml/m^2 17 LA/aortic root ratio 0.75 1.01 Mitral valve Value 02/13/2018 Reference Mitral E-wave peak 0.67 m/sec 0.74 velocity Mitral A-wave peak 0.57 m/sec 0.64 velocity Mitral deceleration time 153 ms 151 150 - 230 Mitral pressure half-time 44 ms 44 Mitral E/A ratio, peak 1.19 1.15 Mitral valve area, PHT, DP 5 cm^2 5 Tricuspid valve Value 02/13/2018 Reference Tricuspid regurg peak 2.3 m/sec 2 velocity Tricuspid peak RV-RA 21.8 mm Hg 16.7 gradient Right atrium Value 02/13/2018 Reference RA area, ES, A4C 8.3 cm^2 8 8.3 - 19.5 Pulmonic valve Value 02/13/2018 Reference Pulmonic peak gradient, S 3 mm Hg Legend: (L) and (H) daniel values outside specified reference range. I have personally reviewed the images and have reviewed and edited the reported findings. Electronically signed by Dony Singh MD 08/27/2018 16:49
--- NOTE | 2018-08-27 13:58 | PDOC.CMIN ---
- If Service Date Differs Date of service: 08/27/18 Time of Service: 13:58 Care Management Initial Assess REASON FOR HOSPITALIZATION:: Chest Pain PAST MEDICAL HISTORY/PAST SURGICAL HISTORY:: Medical History: Spontaneous dissection of coronary artery, NSTEMI (non-ST elevated myocardial infarction), Chest pain due to gastrointestinal reflux disease,. Arthropathia, Dyspepsia, Exercise induced bronchospasm, Fatigue, Jaw pain. Leg cramps, sleep related, Malaise and fatigue, Subclinical hypothyroidism. TMJ (temporomandibular joint syndrome). Surgical History: Past Surgical History. section, EGD - IV Sedation (10/23/16),Repair of inguinal hernia (02/28/16) PREVIOUS FUNCTIONAL STATUS/SOCIAL/FAMILY SUPPORTS:: Toshia lives at home in a single family home with her and son. 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 Her job is physically strenuous and involves a lot of standing, lifting and pulling. She is independent with all ADLs and driving. CURRENT FUNCTIONAL STATUS:: Toshia was sitting up in a chair talking with her visitors when CM came to room. She was pleasant and smiling and engaged in our conversation. She is having several tests done to try to determine the cause of her chest pain. ADVANCE DIRECTIVES:: Toshia does not have Advanced Directives and is not interested at this time. Has patient been provided with information about the portal?: Yes Did the patient sign up for the portal?: Yes (previously) CODE STATUS:: Full Code INSURANCE COVERAGE / FINANCIAL ISSUES:: [facility] CURRENT HOME/COMMUNITY SERVICES/EQUIPMENT:: None currently. PRIMARY CARE PHYSICIAN:: Cam Humphries MD, [facility] POTENTIAL DISCHARGE NEEDS:: Follow up appointments with her PCP and Senior Health Consultant. PATIENT/FAMILY EDUCATION NEEDS:: Discharge education, limitations, follow up plan of care and Ask Me Three. ANTICIPATED BARRIERS TO DISCHARGE:: None TRANSPORTATION:: Via private automobile with family at time of discharge. PLAN:: Toshia is undergoing testing to determine the cause of her chest pain. Anticipate she will go home without services at time of discharge.
--- NOTE | 2018-08-27 14:11 | CHAPLAIN ---
Toshia had two visitors when I stopped in. I introduced myself and explained my role. She did not seem interested in further conversation at that time.
--- NOTE | 2018-08-27 14:24 | INITIAL_ITS ---
- If Service Date Differs Date of service: 08/27/18 Time of Service: 13:58 Care Management Initial Assess REASON FOR HOSPITALIZATION:: Chest Pain PAST MEDICAL HISTORY/PAST SURGICAL HISTORY:: Medical History: Spontaneous dissection of coronary artery, NSTEMI (non-ST elevated myocardial infarction), Chest pain due to gastrointestinal reflux disease,. Arthropathia, Dyspepsia, Exercise induced bronchospasm, Fatigue, Jaw pain. Leg cramps, sleep related, Ma laise and fatigue, Subclinical hypothyroidism. TMJ (temporomandibular joint syndrome). Surgical History: Past Surgical History. section, EGD - IV Sedation (10/23/16),Repair of inguinal hernia (02/28/16) PREVIOUS FUNCTIONAL STATUS/SOCIAL/FAMILY SUPPORTS:: Toshia lives at home in a single family home with her and son. 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 Her job is physically strenuous and involves a lot of standing, lifting and pulling. She is independent with all ADLs and driving. CURRENT FUNCTIONAL STATUS:: Toshia was sitting up in a chair talking with her visitors when CM came to room. She was pleasant and smiling and engaged in our conversation. She is having several tests done to try to determine the cause of her chest pain. ADVANCE DIRECTIVES:: Toshia does not have Advanced Directives and is not interested at this time. Has patient been provided with information about the portal?: Yes Did the patient sign up for the portal?: Yes (previously) CODE STATUS:: Full Code INSURANCE COVERAGE / FINANCIAL ISSUES:: [facility] CURRENT HOME/COMMUNITY SERVICES/EQUIPMENT:: None currently. PRIMARY CARE PHYSICIAN:: Cam Humphries MD, [facility] POTENTIAL DISCHARGE NEEDS:: Follow up appointments with her PCP and [facility]. PATIENT/FAMILY EDUCATION NEEDS:: Discharge education, limitations, follow up plan of care and Ask Me Three. ANTICIPATED BARRIERS TO DISCHARGE:: None TRANSPORTATION:: Via private automobile with family at time of discharge. PLAN:: Toshia is undergoing testing to determine the cause of her chest pain. Anticipate she will go home without services at time of discharge.
[2018-08-27] MEDS: amLODIPine 5 MG TAB PO (15:52)
--- NOTE | 2018-08-27 18:20 | W.PM.DS.N ---
Date of service: 08/27/18 Time of Service: 18:20 DS: Diagnosis Discharge Diagnosis (1) Chest pain: Status: Acute (2) V-tach: Status: Acute Asessment and Plan: nonsustained, asymptomatic (3) Coronary artery dissection: Status: Chronic Asessment and Plan: Healed (4) GERD (gastroesophageal reflux disease): Status: Chronic (5) Ischemic cardiomyopathy: Status: Resolved (6) Adverse reaction to calcium channel marti: Status: Acute Asessment and Plan: norvasc - dizziness, tingling - in absence of hypotention. Discharge Plan Disposition Patient Disposition: HOME Condition: Stable Discharge Details Reason For Visit: CHEST PAIN Admit Date/Time: 08/26/18 08:33 Admit Provider: Manuela Reaves Attending Provider: Manuela Reaves Primary Care Provider: Cam Humphries Hospital Course Hospital Course: Ms Betancourt is a 52 year old female with PMHx of spontaneous coronary artery dissection in 05/2018, as well as systolic dysfunction at the time of that acute event, NSTEMI in above setting and GERD, who was placed in observation status at [facility] on 08/26/18 and is being discharged home today after presenting with atypical chest pain as well as dizziness. The patient had 3 negative troponins and nonspecific ST depressions in all of her leads. [facility] cardiology was involved in our clinical decision making and recommended an echocardiogram (normal findings, as below) as well as a possible stress test, which we would not be able to obtain at our facility until 08/31/18 (4 days from now). The patient had a possible (but not truly certinain) run on nonsustained VTach (7 beats) on day of presentation. Her chest pain gets worse with nitrates and norvasc. Additionally, the patient did have an episode of dizziness and tingling in her B hands 20 minutes after taking her norvasc, which is similar to what she felt at home the day she presented. At this time, it is clear she is not having an ACS. The patient would like to go home and I feel it is safe to discharge the patient as long as she has close outpatient cardiology follow up. Per what patient verbalized to me, she is not comfortable taking norvasc, so it will be discontinued on discharge. Patient is getting outpatient referrals for MRCP (history gall bladder sludge, question of possibly choledocholithiasis). PCP may also choose to order a HIDA scan with CCK, if results are inconclusive. We are also providing a script for a stress test - which the patient can get done either here or at [facility], per her preference. The conversation with [facility] cardiology did indicate it would be beneficial to her workup, but at this point can likely be done as outpatient as the clinical suspicion for the chest pains being cardiac/coronary in origin is now low. Home Meds and New Rx's Prescriptions: Continued ferrous sulfate [FeroSul] 325 mg (65 mg iron) tablet 325 mg PO DAILY RF: 0 multivitamin [Daily Multiple] tablet 1 tab PO DAILY RF: 0 glucosamine sulfate [Glucosamine] 500 mg Tablet 3,000 mg PO DAILY RF: 0 pantoprazole 40 mg Tablet,Delayed Release (Dr/Ec) 40 mg PO DAILY RF: 0 nitroglycerin 0.4 mg Tablet, Sublingual 0.4 mg Sublingual Q5-6M PRN (Reason: Chest Pain) RF: 0 aspirin 81 mg Tablet,Chewable 81 mg PO DAILY RF: 0 metoprolol succinate [Toprol XL] 25 mg Tablet Extended Release 24 Hr 25 mg PO DAILY RF: 0 lisinopril 2.5 mg Tablet 2.5 mg PO DAILY RF: 0 cholecalciferol (vitamin D3) [Vitamin D3] 2,000 unit Tablet 2,000 unit PO DAILY RF: 0 Discontinued amlodipine 5 mg Tablet 5 mg PO DAILY RF: 0 Discharge Instructions Instructions: Chest Pain (DC) Additional Instructions: Return to the hospital with any fever, bleeding, chest pain, shortness of breath. Follow up with your strategic sourcing consultant at [facility] in 1-2 weeks. Stress test and MRCP scripts provided. Referrals: CARDIOLOGY,[facility] [OTHER] - Activity:: May not return to work until stress test Equipment/Supplies:: No Equipment Needed Diet:: As Tolerated Discharge Orders Discharge Orders: Discharge Order (Routine); Ordered 08/27/18 Ordered By: Manuela Reaves Other Ambulatory Orders: NM MPI rest & stress grp (Routine) Timeframe: 1 Week Facility: [facility] - Location: STRESS LAB Ordered By: Manuela Reaves MR abdomen wo (Routine) Location: Determined by Patient Ordered By: Manuela Reaves Exam Narrative Exam Narrative: General: Very pleasant middle aged female, mildly anxious, sitting up in bed HEENT: EOMI, MMM, clear oropharynx, no submandibular or cervical lymphadenopathy, no goiter or JVD Heart: RRR, no m/r/g Lungs: CTAB GI: abdomen is soft, nontender, nondistended Extremities: no e/c/c BLE's, trace pedal pulses B; B feet are cool DS: Data Vitals/I&O Vitals and I&O: Vital Signs Temperature 36.5 C 08/27/18 15:54 Temperature Source Tympanic 08/27/18 15:54 Pulse 51 L 08/27/18 15:54 Pulse Rhythm Irregular 08/27/18 15:55 Pulse 58 L 08/26/18 09:30 Respiratory Rate 16 08/27/18 15:54 Respiratory Effort Non-Labored 08/27/18 15:55 Respiratory Depth Normal 08/27/18 15:55 Respiratory Pattern Normal 08/27/18 15:55 Blood Pressure 119/77 08/27/18 15:54 Blood Pressure Mean 86 08/26/18 07:00 Blood Pressure Position Sitting 08/26/18 06:33 Pulse Oximetry 97 08/27/18 15:54 Oxygen Delivery Method Room Air 08/27/18 15:54 Oxygen Flow Rate 0 08/27/18 15:54 Pain Level 0 08/27/18 15:54 Comment 08/26/18 10:12 Intake & Output 08/26/18 08/27/18 08/27/18 23:59 11:59 23:59 Intake Total 915 / 915 610 / 1110 500 / 1110 Output Total 1250 / 1250 Balance -335 / -335 610 / 1110 500 / 1110 Weight 66.7 kg Intake: IV Oral 900 / 900 610 / 1110 500 / 1110 Output: Urine 1250 / 1250 Other: Urine Color Yellow Urine Appearance Clear Clear Voiding Methods Toilet Toilet Completed studies during hospitalization [Text1]: Echo: 1. Left ventricle: The cavity size was normal. Systolic function was normal. The estimated ejection fraction was 55-60%. Diastolic parameters were normal. There was no evidence of elevated ventricular filling pressure by Doppler parameters. 2. Aortic valve: There was mild regurgitation. 3. Mitral valve: There was mild regurgitation. 4. Right ventricle: The cavity size was normal. Wall thickness was normal. Systolic function was normal. 5. Atrial septum: No defect or patent foramen ovale was identified. 6. Pulmonary arteries: Pulmonary systolic pressure was in the range of 20mm Hg to 30mm Hg. 7. Inferior vena cava: The vessel was patent and normal in size. The respirophasic diameter changes were in the normal range (greater than or equal to 50%), consistent with normal central venous pressure. Labs on day of discharge: Labs from last 24 hours 08/27/18 08/27/18 08/27/18 06:20 06:20 06:20 WBC 5.37 RBC 4.64 Hgb 14.0 Hct 43.2 MCV 93.1 MCH 30.2 MCHC 32.4 RDW 12.7 Plt Count 171 MPV 13.3 H Sodium 137 Potassium 3.9 Chloride 101 Carbon Dioxide 27.7 Anion Gap 8.3 BUN 18 Creatinine 0.77 Estimated GFR/1.73 m2 >= 60.00 Glucose 104 H Calcium 9.0 Magnesium 2.1 Troponin I < 0.02 08/26/18 21:25 WBC RBC Hgb Hct MCV MCH MCHC RDW Plt Count MPV Sodium Potassium Chloride Carbon Dioxide Anion Gap BUN Creatinine Estimated GFR/1.73 m2 Glucose Calcium Magnesium Troponin I < 0.02 PFSH Medical History Spontaneous dissection of coronary artery (Chronic) NSTEMI (non-ST elevated myocardial infarction) (Resolved) Chest pain due to gastrointestinal reflux disease (Acute) Arthropathia Dyspepsia Exercise induced bronchospasm Fatigue Jaw pain Leg cramps, sleep related Malaise and fatigue Subclinical hypothyroidism TMJ (temporomandibular joint syndrome) Surgical History section EGD - IV Sedation (10/23/16) Repair of inguinal hernia (02/28/16) Family History Brother Diabetes Paternal Grandmother Myocardial infarct Hx of CABG Daughter Celiac disease Father Crohn's disease Mother Prediabetes Social History Smoking/Tobacco Use Status: Former Tobacco Use Quit Date: 05/25/18 Second Hand Exposure: Yes Alcohol Intake: never Drug use: Never Substance use type: does not use Household members: spouse Number of Children: 3 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
--- NOTE | 2018-08-27 18:24 | DSE_ITS ---
Date of service: 08/27/18 Time of Service: 18:20 DS: Diagnosis Discharge Diagnosis (1) Chest pain: Status: Acute (2) V-tach: Status: Acute Asessment and Plan: nonsustained, asymptomatic (3) Coronary artery dissection: Status: Chronic Asessment and Plan: Healed (4) GERD (gastroesophageal reflux disease): Status: Chronic (5) Ischemic cardiomyopathy: Status: Resolved (6) Adverse reaction to calcium channel marti: Status: Acute Asessment and Plan: norvasc - dizziness, tingling - in absence of hypotention. Discharge Plan Disposition Patient Disposition: HOME Condition: Stable Discharge Details Reason For Visit: CHEST PAIN Admit Date/Time: 08/26/18 08:33 Admit Provider: Manuela Reaves Attending Provider: Manuela Reaves Primary Care Provider: Cam Humphries Hospital Course Hospital Course: Ms Betancourt is a 52 year old female with PMHx of spontaneous coronary artery dissection in 05/2018, as well as systolic dysfunction at the time of that acute event, NSTEMI in above setting and GERD, who was placed in observation status at [facility] on 08/26/18 and is being discharged home today after presenting with atypical chest pain as well as dizziness. The patient had 3 negative troponins and nonspecific ST depressions in all of her leads. [facility] cardiology was involved in our clinical decision making and recommended an echocardiogram (normal findings, as below) as well as a possible stress test, which we would not be able to obtain at our facility until 08/31/18 (4 days from now). The patient had a possible (but not truly certinain) run on nonsustained VTach (7 beats) on day of presentation. Her chest pain gets worse with nitrates and norvasc. Additionally, the patient did have an episode of dizziness and tingling in her B hands 20 minutes after taking her norvasc, which is similar to what she felt at home the day she presented. At this time, it is clear she is not having an ACS. The patient would like to go home and I feel it is safe to discharge the patient as long as she has close outpatient cardiology follow up. Per what patient verbalized to me, she is not comfortable taking norvasc, so it will be discontinued on discharge. Patient is getting outpatient referrals for MRCP (history gall bladder sludge, question of possibly choledocholithiasis). PCP may also choose to order a HIDA scan with CCK, if results are inconclusive. We are also providing a script for a stress test - which the patient can get done either here or at [facility], per her preference. The conversation with [facility] cardiology did indicate it would be beneficial to her workup, but at this point can likely be done as outpatient as the clinical suspicion for the chest pains being cardiac/coronary in origin is now low. Home Meds and New Rx's Prescriptions: Continued ferrous sulfate [FeroSul] 325 mg (65 mg iron) tablet 325 mg PO DAILY RF: 0 multivitamin [Daily Multiple] tablet 1 tab PO DAILY RF: 0 glucosamine sulfate [Glucosamine] 500 mg Tablet 3,000 mg PO DAILY RF: 0 pantoprazole 40 mg Tablet,Delayed Release (Dr/Ec) 40 mg PO DAILY RF: 0 nitroglycerin 0.4 mg Tablet, Sublingual 0.4 mg Sublingual Q5-6M PRN (Reason: Chest Pain) RF: 0 aspirin 81 mg Tablet,Chewable 81 mg PO DAILY RF: 0 metoprolol succinate [Toprol XL] 25 mg Tablet Extended Release 24 Hr 25 mg PO DAILY RF: 0 lisinopril 2.5 mg Tablet 2.5 mg PO DAILY RF: 0 cholecalciferol (vitamin D3) [Vitamin D3] 2,000 unit Tablet 2,000 unit PO DAILY RF: 0 Discontinued amlodipine 5 mg Tablet 5 mg PO DAILY RF: 0 Discharge Instructions Instructions: Chest Pain (DC) Additional Instructions: Return to the hospital with any fever, bleeding, chest pain, shortness of breath. Follow up with your judicial reporter at [facility] in 1-2 weeks. Stress test and MRCP scripts provided. Referrals: CARDIOLOGY,[facility] [OTHER] - Activity:: May not return to work until stress test Equipment/Supplies:: No Equipment Needed Diet:: As Tolerated Discharge Orders Discharge Orders: Discharge Order (Routine); Ordered 08/27/18 Ordered By: Manuela Reaves Other Ambulatory Orders: NM MPI rest & stress grp (Routine) Timeframe: 1 Week Facility: [facility] - Location: STRESS LAB Ordered By: Manuela Reaves MR abdomen wo (Routine) Location: Determined by Patient Ordered By: Manuela Reaves Exam Narrative Exam Narrative: General: Very pleasant middle aged female, mildly anxious, sitting up in bed HEENT: EOMI, MMM, clear oropharynx, no submandibular or cervical lymphadenopathy, no goiter or JVD Heart: RRR, no m/r/g Lungs: CTAB GI: abdomen is soft, nontender, nondistended Extremities: no e/c/c BLE's, trace pedal pulses B; B feet are cool DS: Data Vitals/I&O Vitals and I&O: Vital Signs Temperature 36.5 C 08/27/18 15:54 Temperature Source Tympanic 08/27/18 15:54 Pulse 51 L 08/27/18 15:54 Pulse Rhythm Irregular 08/27/18 15:55 Pulse 58 L 08/26/18 09:30 Respiratory Rate 16 08/27/18 15:54 Respiratory Effort Non-Labored 08/27/18 15:55 Respiratory Depth Normal 08/27/18 15:55 Respiratory Pattern Normal 08/27/18 15:55 Blood Pressure 119/77 08/27/18 15:54 Blood Pressure Mean 86 08/26/18 07:00 Blood Pressure Position Sitting 08/26/18 06:33 Pulse Oximetry 97 08/27/18 15:54 Oxygen Delivery Method Room Air 08/27/18 15:54 Oxygen Flow Rate 0 08/27/18 15:54 Pain Level 0 08/27/18 15:54 Comment 08/26/18 10:12 Intake & Output 08/26/18 08/27/18 08/27/18 23:59 11:59 23:59 Intake Total 915 / 915 610 / 1110 500 / 1110 Output Total 1250 / 1250 Balance -335 / -335 610 / 1110 500 / 1110 Weight 66.7 kg Intake: IV Oral 900 / 900 610 / 1110 500 / 1110 Output: Urine 1250 / 1250 Other: Urine Color Yellow Urine Appearance Clear Clear Voiding Methods Toilet Toilet Completed studies during hospitalization [Text1]: Echo: 1. Left ventricle: The cavity size was normal. Systolic function was normal. The estimated ejection fraction was 55-60%. Diastolic parameters were normal. There was no evidence of elevated ventricular filling pressure by Doppler parameters. 2. Aortic valve: There was mild regurgitation. 3. Mitral valve: There was mild regurgitation. 4. Right ventricle: The cavity size was normal. Wall thickness was normal. Systolic function was normal. 5. Atrial septum: No defect or patent foramen ovale was identified. 6. Pulmonary arteries: Pulmonary systolic pressure was in the range of 20mm Hg to 30mm Hg. 7. Inferior vena cava: The vessel was patent and normal in size. The respirophasic diameter changes were in the normal range (greater than or equal to 50%), consistent with normal central venous pressure. Labs on day of discharge: Labs from last 24 hours 08/27/18 08/27/18 08/27/18 06:20 06:20 06:20 WBC 5.37 RBC 4.64 Hgb 14.0 Hct 43.2 MCV 93.1 MCH 30.2 MCHC 32.4 RDW 12.7 Plt Count 171 MPV 13.3 H Sodium 137 Potassium 3.9 Chloride 101 Carbon Dioxide 27.7 Anion Gap 8.3 BUN 18 Creatinine 0.77 Estimated GFR/1.73 m2 >= 60.00 Glucose 104 H Calcium 9.0 Magnesium 2.1 Troponin I < 0.02 08/26/18 21:25 WBC RBC Hgb Hct MCV MCH MCHC RDW Plt Count MPV Sodium Potassium Chloride Carbon Dioxide Anion Gap BUN Creatinine Estimated GFR/1.73 m2 Glucose Calcium Magnesium Troponin I < 0.02 PFSH Medical History Spontaneous dissection of coronary artery (Chronic) NSTEMI (non-ST elevated myocardial infarction) (Resolved) Chest pain due to gastrointestinal reflux disease (Acute) Arthropathia Dyspepsia Exercise induced bronchospasm Fatigue Jaw pain Leg cramps, sleep related Malaise and fatigue Subclinical hypothyroidism TMJ (temporomandibular joint syndrome) Surgical History section EGD - IV Sedation (10/23/16) Repair of inguinal hernia (02/28/16) Family History Brother Diabetes Paternal Grandmother Myocardial infarct Hx of CABG Daughter Celiac disease Father Crohn's disease Mother Prediabetes Social History Smoking/Tobacco Use Status: Former Tobacco Use Quit Date: 05/25/18 Second Hand Exposure: Yes Alcohol Intake: never Drug use: Never Substance use type: does not use Household members: spouse Number of Children: 3 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
--- NOTE | 2018-08-27 19:00 | NUR.NOTE ---
Nursing Note: Patient rang her call freeman at approximately 1630 and c/o dizziness and tingling in her extremities. Patient states that this is how she has been feeling since starting her new prescription for Amlodipine. She just received her 1600 dose of Amlodipine about 45 minutes earlier.
== END 2018-08-27 19:32 | disposition home or self-care (01) | DRG 313 ==
LOC: ER 09:04 → MS 09:48
PROVIDERS: Admitting Provider Internal Medicine; Emergency Provider Student in an Organized Health Care Education/Training Program; PCP Internal Medicine; Visit Provider Internal Medicine
DX: R07.89 Other chest pain (principal); I47.2 Ventricular tachycardia; I25.2 Old myocardial infarction; Z86.79 Personal history of other diseases of the circulatory system; I08.0 Rheumatic disorders of both mitral and aortic valves; K21.9 Gastro-esophageal reflux disease without esophagitis; I25.5 Ischemic cardiomyopathy; E02 Subclinical iodine-deficiency hypothyroidism
CPT/HCPCS: 36415; 80048; 80053; 85027; 93005; 99217; 99220; 99254; 99285; 83735; 84484; 85025; 93010; 93306; 99223; 99284

== ENCOUNTER 2018-09-02 00:08 | Outpatient (CLI) | payer BC, SELFPAY ==
--- NOTE | 2018-09-02 11:15 | MERGEMPI_ITS ---
*[facility]* *[facility]* [address] [place] [address] Myocardial Perfusion Imaging - SPECT Rashel protocol Date of study: 09/02/2018 *PATIENT PRESENTATION* Height: 175.3cm (69in) Blood Pressure: Weight: 106.8kg (235lb) BSA: 2.32m^2 Referring physician: Juanjose Stewart Ordering physician: Edilma Broussard Aprn Impressions: Normal study after maximal exercise. Summary: 1. Myocardial perfusion imaging: No myocardial perfusion defects noted. 2. The calculated left ventricular ejection fraction after stress: 66%. LV global systolic function is normal. No left ventricular regional motion abnormality. 3. Stress ECG conclusions: The stress ECG is negative. Brody treadmill score: 10. This score predicts a low risk of cardiac events. 4. Stress: The target heart rate was achieved. The heart rate response to stress is normal. There is a normal resting blood pressure with an appropriate response to stress. The patient experienced no chest pain during stress. Exercise capacity is above normal for age. 5. Treadmill exercise testing was performed using the Rashel protocol. The patient exercised for 9 min 26 sec, to protocol stage 3, to a maximal work rate of 10.9mets. Exercise was terminated due to fatigue. Indication: I44.7, Appropriate Use Criteria: A (Appropriate). History: REASON FOR VISIT: PT WAS ADMITTED ON 08/26/18 FOR CHEST PAIN. EKGs SHOWED NO ACUTE ST CHANGES. SERIAL TROPONINS WERE NEGATIVE. PT WAS DISCHARGED FROM THE HOSPITAL ON 08/27/18 WITH FOLLOW UP PLANS FOR THIS MPI STRESS TEST. PT HAS A HISTORY OF SPONTANEOUS CORONARY ARTERY DISSECTION ON May. LAST EPISODE OF CHEST PAIN WAS YESTERDAY WHILE AT REST. DESCRIBES A DULL PRESSURE, IT LASTED 5-10 MINUTES EACH TIME IT WAS WITHOUT ANY OTHER ASSOCIATED SYMPTOMS. Risk factors: Hypertension. Cholesterol: 190mg/dl. HDL: 68mg/dl. LDL: 110mg/dl. Triglycerides: 64mg/dl. ALLERGIES: NICKEL. P[place]UCE. MEDICATIONS: PANTOPRAZOLE 40 MG DAILY. NITROGLYCERIN 0.4 MG SL PRN. MVI 1 TAB DAILY. METOPROLOL SUCCINATE 25 MG DAILY. LISINOPRIL 2.5 MG DAILY. GLUCOSAMINE SULFATE 3,000 MG DAILY. MVI 1 TAB DAILY. IRON 1 TAB DAILY. Imaging Technique: Protocol: Rashel protocol. Acquisition: Gated SPECT; 1 day - rest/stress. The patient was imaged in the supine position. Attenuation correction used. Isotope administration: - Rest. Tc[99m]-sestamibi. Dose: 9.5mCi. Injection time: 11:25 AM. Injection to stress time: 00:45. - Stress. Tc[99m]-sestamibi. Dose: 29.6mCi. Injection time: 01:45 PM. 1-2 min before end of exercise Baseline ECG: SINUS RHYTHM. HR 61 BPM. Normal ECG. Stress protocol: + +---+ + !Stage !HR !BP (mmHg) ! + +---+ + !Baseline supine !61 !122/74 (90)! + +---+ + !Baseline standing !77 !120/88 (99)! + +---+ + !Stage I; 1.7mph, 10degrees; 3 min !114!134/72 (93)! + +---+ + !Stage II; 2.5mph, 12degrees; 3 min !128!138/76 (97)! + +---+ + !Stage III; 3.4mph, 14degrees; 3 min!146! ! + +---+ + !Peak stress !160! ! + +---+ + !Recovery; 1 min !129!140/68 (92)! + +---+ + !Recovery; 3 min !85 !136/72 (93)! + +---+ + !Recovery; 6 min !72 !122/68 (86)! + +---+ + * Stress results: Maximal heart rate during stress was 160bpm (95% of maximal predicted heart rate). The maximal predicted heart rate was 169bpm. The target heart rate was achieved. The heart rate response to stress is normal. There is a normal resting blood pressure with an appropriate response to stress. The rate-pressure product for the peak heart rate and blood pressure was 88200ge Hg/min. The patient experienced no chest pain during stress. Exercise capacity is above normal for age. Stress ECG: TREADMILL PORTION OF STRESS TEST ENDED IN 9 MINUTES & 26 SECONDS DUE TO FATIGUE. NORMAL HEART RATE AND BLOOD PRESSURE RESPONSE TO EXERCISE. MAX HR = 160 % OF TARGET = 94 NO ECTOPY APPROXIMATE METS ACHIEVED = 10.85 NO ANGINA NO SIGNIFICANT ST SEGMENT CHANGES ABOVE AVERAGE FUNCTIONAL CAPACITY FOR EXERCISE. The stress ECG is negative. Brody treadmill score: 10. This score predicts a low risk of cardiac events. Myocardial perfusion: Imaging information: gated. The image quality was excellent. Left ventricular size is normal. No myocardial perfusion defects noted. Ventricular Function (Wall Motion): The calculated left ventricular ejection fraction after stress: 66%. LV global systolic function is normal. No left ventricular regional motion abnormality. Study data: Juanjose Stewart MD supervised and was readily available during the procedure. This study was interpreted by [facility]. Study status: Routine. Consent: The risks, benefits, and alternatives to the procedure were explained to the patient and informed consent was obtained. Procedure: Initial setup. A baseline ECG was recorded. Surface ECG leads and manual cuff blood pressure measurements were monitored. Heart sounds: Normal. Lung sounds: Normal. Treadmill exercise testing was performed using the Rashel protocol. The patient exercised for 9 min 26 sec, to protocol stage 3, to a maximal work rate of 10.9mets. Exercise was terminated due to fatigue. Study completion: All catheters inserted during the procedure were removed. The patient tolerated the procedure well and was discharged from the lab. Discharge: The patient left the laboratory in stable condition. Birthdate: Patient birthdate: 1965. Sex: Gender: female. Study date: Study date: 09/02/2018. Study time: 00:01 AM. Signature Documentation: - The imaging portion of this study was interpreted by Nuclear Rubberizing Mechanic Juanjose Stewart MD. - The imaging portion of this study was interpreted by Nuclear Radiologist Jose Juan Jacobson MD. - The Stress ECG portion of this study was interpreted by Juanjose Stewart MD. Electronically signed by Juanjose Stewart 09/02/2018 15:27
== END 2018-09-02 00:28 ==
PROVIDERS: PCP Internal Medicine; Visit Provider Nurse Practitioner Family
DX: R07.9 Chest pain, unspecified (principal); I25.10 Atherosclerotic heart disease of native coronary artery without angina pectoris; I10 Essential (primary) hypertension; I25.2 Old myocardial infarction; I47.2 Ventricular tachycardia
CPT/HCPCS: 78452; 93017

== ENCOUNTER 2018-09-30 00:07 | Outpatient (CLI) | payer BC, SELFPAY ==
--- NOTE | 2018-09-30 08:58 | DI.MRI_ITS ---
SYMPTOM/DIAGNOSIS: EPIGASTRIC PAIN, R10.13, CHOLELITHIASIS, K80.20 MR ABDOMEN: MRCP was performed according to the usual protocol. The examination is of limited technical quality due to motion. Liver shows normal signal. Pancreas shows normal signal. Spleen is unremarkable in appearance. Kidneys appear intact. No adenopathy identified. The common hepatic duct and common bile duct are fairly well visualized and are of normal diameter. Pancreatic duct is of normal diameter. No definite intraluminal filling defect identified. No evidence of obstruction. The gallbladder and cystic duct are very poorly visualized due to motion. CONCLUSION: Technically limited study. No evidence of choledocholithiasis or biliary ductal dilatation by MRCP criteria.
== END 2018-09-30 00:27 ==
PROVIDERS: PCP Internal Medicine; Visit Provider Nurse Practitioner Family
DX: R10.13 Epigastric pain (principal); K80.20 Calculus of gallbladder without cholecystitis without obstruction
CPT/HCPCS: 74181

== ENCOUNTER 2018-10-13 17:43 | Outpatient (REF) | payer BC, SELFPAY ==
[2018-10-13 21:09] LABS: Abs Immature Grans 0.01 k/cumm (0.0-0.09); Absolute Basophil Count 0.04 k/cumm (0.0-0.2); Absolute Eosinophil Count 0.17 k/cumm (0.0-0.7); Absolute Lymphocyte Count 2.26 k/cumm (1.2-3.4); Absolute Monocyte Count 0.56 k/cumm (0.11-0.7); Absolute Neutrophil Count 5.69 k/cumm (1.2-6.7); Basophils % 0.5; Eosinophils % 1.9; HCT 40.9 % (36.0-46.0); HGB 13.5 g/dL (12.0-15.5); Immature Grans % 0.1; Lymphocytes % 25.9; Mean Corpuscular Hemoglobin 30.8 pg (27.0-33.0); Mean Corpuscular Volume 93.4 fL (80-95); Mean Platelet Volume 13.9 fL (8.0-11.0); Monocytes % 6.4; Neutrophils % 65.2; Platelet Count 180 x1000/uL (130-400); RBC 4.38 m/cumm (4.00-5.20); RBC Distribution Width 13.3 % (11.7-14.6); White Blood Cell Count 8.73 k/cumm (4.4-10.8)
[2018-10-13 21:20] LABS: Iron 37 ug/dL (50-175); Total Iron Binding Capacity 444 ug/dL (250-450); Transferrin Sat 8 % (15-50)
[2018-10-13 21:33] LABS: TSH (W/Ref FT4) 3.41 uIU/mL (0.358-3.74)
[2018-10-15 06:36] LABS: Vitamin D 25 Total 20.2 ng/ml (30-100)
== END 2018-10-13 18:03 ==
LOC: NCHCN 17:43
PROVIDERS: PCP Internal Medicine; Visit Provider Nurse Practitioner Family
DX: R10.13 Epigastric pain (principal); I25.10 Atherosclerotic heart disease of native coronary artery without angina pectoris; I25.2 Old myocardial infarction; N94.6 Dysmenorrhea, unspecified; D50.9 Iron deficiency anemia, unspecified; E03.9 Hypothyroidism, unspecified; K30 Functional dyspepsia; E55.9 Vitamin D deficiency, unspecified
CPT/HCPCS: 82306; 83540; 83550; 84443; 85025

== ENCOUNTER 2018-12-14 16:17 | Outpatient (REF) | payer BC, SELFPAY ==
[2018-12-14 21:44] LABS: Vitamin D 25 Total 30.3 ng/ml (30-100)
== END 2018-12-14 16:37 ==
LOC: NCHCN 16:17
PROVIDERS: PCP Internal Medicine; Visit Provider Nurse Practitioner Family
DX: E55.9 Vitamin D deficiency, unspecified (principal)
CPT/HCPCS: 82306

== ENCOUNTER 2018-12-17 08:20 | Outpatient (CLI) | payer BC, SELFPAY ==
--- NOTE | 2018-12-17 09:00 | DI.US_ITS ---
SYMPTOM/DIAGNOSIS: EPIGASTRIC PAIN, R0.13 ABDOMINAL ULTRASOUND: The aorta and vena cava are normal. The liver measures 15.2 cm in length. The gallbladder is intact with no evidence of wall thickening or pericholecystic fluid. There is no evidence of ductal dilatation. The pancreas is unremarkable. The spleen is unremarkable. The kidneys are unremarkable. There is no evidence of free fluid. SUMMARY: Normal abdominal ultrasound.
--- NOTE | 2018-12-17 10:30 | DI.NM_ITS ---
SYMPTOMS/DIAGNOSIS: GALLBLADDER SLUDGE, K82.8 HEPATOBILIARY SCAN: The study was carried out with an intravenous administration of 5.1 millicuries of Technetium 99 M Mebrofenin. The hepatic phase is normal. The gallbladder is demonstrated at 25-28 minutes post injection. There is activity in the intrahepatic biliary structures and common duct with evidence of small bowel activity at 25-28 minutes. SUMMARY: Normal hepatobiliary scan.
== END 2018-12-17 08:40 ==
PROVIDERS: PCP Internal Medicine; Visit Provider Nurse Practitioner Family
DX: R10.13 Epigastric pain (principal); K82.8 Other specified diseases of gallbladder
CPT/HCPCS: 78227; 76700

== ENCOUNTER 2019-01-04 16:59 | Outpatient (REF) | payer BC, SELFPAY ==
[2019-01-04 21:37] LABS: HCT 40.4 % (36.0-46.0); HGB 13.1 g/dL (12.0-15.5); Mean Corp. HGB Concentration 32.4 g/dL (32.0-36.0); Mean Corpuscular Hemoglobin 30.1 pg (27.0-33.0); Mean Corpuscular Volume 92.9 fL (80-95); Platelet Count 173 x1000/uL (130-400); RBC 4.35 m/cumm (4.00-5.20); RBC Distribution Width 13.2 % (11.7-14.6); White Blood Cell Count 6.31 k/cumm (4.4-10.8)
[2019-01-04 21:46] LABS: Iron 44 ug/dL (50-175)
== END 2019-01-04 17:19 ==
LOC: NCHCN 16:59
PROVIDERS: PCP Internal Medicine; Visit Provider Nurse Practitioner Family
DX: R10.13 Epigastric pain (principal); D50.9 Iron deficiency anemia, unspecified; E55.9 Vitamin D deficiency, unspecified; R07.9 Chest pain, unspecified; E03.9 Hypothyroidism, unspecified; R53.83 Other fatigue; K30 Functional dyspepsia; I25.2 Old myocardial infarction
CPT/HCPCS: 85027; 83540

== ENCOUNTER 2019-07-02 18:57 | Outpatient (REF) | payer BC, SELFPAY ==
[2019-07-02 21:10] LABS: Abs Immature Grans 0.01 k/cumm (0.0-0.09); Absolute Basophil Count 0.06 k/cumm (0.0-0.2); Absolute Eosinophil Count 0.16 k/cumm (0.0-0.7); Absolute Monocyte Count 0.46 k/cumm (0.11-0.7); Absolute Neutrophil Count 2.69 k/cumm (1.2-6.7); Basophils % 1.2; Eosinophils % 3.1; HCT 40.8 % (36.0-46.0); Immature Grans % 0.2 %; Lymphocytes % 34.7; Mean Corp. HGB Concentration 34.3 g/dL (32.0-36.0); Mean Corpuscular Hemoglobin 31.6 pg (27.0-33.0); Mean Corpuscular Volume 92.1 fL (80-95); Mean Platelet Volume 13.2 fL (8.0-11.0); Monocytes % 8.9; Neutrophils % 51.9; Platelet Count 190 x1000/uL (130-400); RBC 4.43 m/cumm (4.00-5.20); RBC Distribution Width 12.8 % (11.7-14.6); White Blood Cell Count 5.18 k/cumm (4.4-10.8)
[2019-07-02 21:44] LABS: Iron 64 ug/dL (50-170)
[2019-07-02 21:51] LABS: TSH (W/Ref FT4) 3.46 uIU/mL (0.36-3.74)
[2019-07-05 05:47] LABS: Vitamin D 25 Total 23.9 ng/ml (30-100)
== END 2019-07-02 19:17 ==
LOC: NCHCN 18:57
PROVIDERS: PCP Internal Medicine; Visit Provider Nurse Practitioner Family
DX: R53.83 Other fatigue (principal); R10.13 Epigastric pain; I25.10 Atherosclerotic heart disease of native coronary artery without angina pectoris; I25.2 Old myocardial infarction; D50.9 Iron deficiency anemia, unspecified; N94.6 Dysmenorrhea, unspecified; E55.9 Vitamin D deficiency, unspecified; E03.9 Hypothyroidism, unspecified
CPT/HCPCS: 82306; 83540; 84443; 85025

== ENCOUNTER 2020-01-27 19:59 | Outpatient (REF) | payer BC, SELFPAY ==
[2020-01-27 21:25] LABS: HCT 43.3 % (36.0-46.0); HGB 14.1 g/dL (11.2-15.7); MCH 30.6 pg (27.0-33.0); MCHC 32.6 % (32.0-36.0); MCV 93.9 fL (80-95); Platelet Count 174 10^3/uL (130-400); RBC 4.61 10^6/uL (3.93-5.22); RDW 12.5 % (11.7-14.6); WBC 5.46 10^3/uL (4.4-10.8)
[2020-01-27 21:33] LABS: ALT 40 U/L (14-59); AST 24 U/L (15-37); Albumin 3.8 g/dL (3.4-5.0); Alkaline Phosphatase 60 U/L (46-116); Anion Gap 7.1 mmol/L (3-11); BUN 20 mg/dL (7-18); Bilirubin, Total 0.3 mg/dL (0.2-1.0); CO2 30.9 mmol/L (21.0-32.0); CREATININE 0.74 mg/dL (0.55-1.02); Calcium 9.4 mg/dL (8.5-10.1); Chloride 103 mmol/L (98-107); Glucose 103 mg/dL (74-106); Potassium 4.1 mmol/L (3.5-5.1); Sodium 141 mmol/L (136-145)
[2020-01-28 17:43] LABS: CRP, High Sensitivity 0.46 mg/L (See Note)
[2020-01-31 11:51] LABS: Lyme Ab w Rflx to Lyme Confirm Negative (Negative)
[2020-01-31 19:56] LABS: Anaplasma phagocytophilum Negative (Negative); B. miyamotoi PCR Negative (Negative); Babesia divergens/MO-1 Negative (Negative); Babesia duncani Negative (Negative); Babesia microti Negative (Negative); Ehrlichia chaffeensis Negative (Negative); Ehrlichia ewingii/canis Negative (Negative); Ehrlichia muris eauclairensis Negative (Negative)
== END 2020-01-27 20:19 ==
LOC: NCHCN 19:59
PROVIDERS: PCP Internal Medicine; Visit Provider Family Medicine
DX: R53.1 Weakness (principal); R07.9 Chest pain, unspecified; W57.XXXA Bitten or stung by nonvenomous insect and other nonvenomous arthropods, initial encounter; T14.8XXA Other injury of unspecified body region, initial encounter
CPT/HCPCS: 80053; 85027; 86141; 87798; 86618

== ENCOUNTER 2020-06-14 10:51 | Outpatient (REF) | payer BC, SELFPAY ==
[2020-06-15 16:26] LABS: COVID-19 RT-PCR UVMMC Result Negative (Negative)
== END 2020-06-14 11:11 ==
LOC: NCHCN 10:51
PROVIDERS: PCP Internal Medicine; Visit Provider Nurse Practitioner Family
DX: Z20.822 Contact with and (suspected) exposure to COVID-19 (principal)
CPT/HCPCS: U0003